=== PATIENT | male | born 1985 | race Hispanic/Latino ===

== ENCOUNTER 2020-11-05 16:11 | Emergency (ER) | payer OTHER ==
[2020-11-05 17:07] LABS: BUN Blood Urea Nitrogen 9 mg/dL (7-18); Bicarbonate 25 mmol/L (21-32); Glucose Level 92 mg/dL (74-106); Potassium 3.4 mmol/L (3.5-5.1); Sodium Level 139 mmol/L (136-145); Valproic Acid (Depakene) Level < 50.0 ug/mL (50-100)
[2020-11-05 17:15] LABS: Absolute Lymphocytes (CBC) 1.8 K/uL (0.7-4.9); Basophils % 0.5 % (0-1.3); Hematocrit 39.4 % (39.6-49.0); Lymphocytes % 15.3 % (15.3-44.8); MPV 10.6 fL (7.6-11.3); RBC Red Blood Cell Count 4.75 M/uL (4.33-5.43)
--- NOTE | 2020-11-05 18:08 | ER ---
Nurse's Notes [facility] Name: Byron Gutierrez Age: 35 yrs Sex: Male : 1985 Arrival Date: 11/05/2020 Time: 16:12 Bed 6 Private MD: Diagnosis: Epilepsy and recurrent seizures Presentation: 11/05 16:13 Chief complaint: EMS states: Probable seizure x 2 today. Pt reported he recalls feeling hb an aura and then lost time twice today. Hx of seizures, and dissociative identity disorder, has been out of his Seroquel x 2 weeks. 20g LAC. Coronavirus screen: At this time, the client does not indicate any symptoms associated with coronavirus-19. Ebola Screen: No symptoms or risks identified at this time. Initial Sepsis Screen: Does the patient meet any 2 criteria? No. Patient's initial sepsis screen is negative. Does the patient have a suspected source of infection? No. Patient's initial sepsis screen is negative. Risk Assessment: Do you want to hurt yourself or someone else? Patient reports no desire to harm self or others. Onset of symptoms was November 05, 2020. 16:13 Method Of Arrival: EMS: [facility] 16:13 Acuity: KYLEIGH 2 hb Triage Assessment: 16:17 General: Appears in no apparent distress. Behavior is calm, cooperative. Pain: Denies hb pain. EENT: No signs and/or symptoms were reported regarding the EENT system. Neuro: Level of Consciousness is awake, alert, obeys commands, Oriented to person, place, time, situation. Cardiovascular: Patient's skin is warm and dry. Respiratory: Respiratory effort is even, unlabored, Respiratory pattern is regular, symmetrical. GI: No signs and/or symptoms were reported involving the gastrointestinal system. : No signs and/or symptoms were reported regarding the genitourinary system. Derm: Skin is pink, warm \T\ dry. Musculoskeletal: No signs and/or symptoms reported regarding the musculoskeletal system. Historical: - Allergies: 16:17 No Known Allergies; hb - Home Meds: 16:17 Depakote Oral [Active]; Seroquel Oral [Active]; hb - PMHx: 16:17 Anxiety; Dissociative Identity Disorder; Seizures; hb - PSHx: 16:17 None; hb - Immunization history:: Adult Immunizations up to date. - Social history:: Smoking status: Patient denies any tobacco usage or history of. Screenin:14 Abuse screen: Denies threats or abuse. Nutritional screening: No deficits noted. tw2 Tuberculosis screening: No symptoms or risk factors identified. Fall Risk None identified. Assessment: 16:17 General: see triage assessment . hb 17:35 Reassessment: Patient appears in no apparent distress at this time. No changes from tw2 previously documented assessment. Patient and/or family updated on plan of care and expected duration. Pain level reassessed. Patient is alert, oriented x 3, equal unlabored respirations, skin warm/dry/pink. 18:29 Reassessment: Patient appears in no apparent distress at this time. Patient and/or hb family updated on plan of care and expected duration. Pain level reassessed. Patient is alert, oriented x 3, equal unlabored respirations, skin warm/dry/pink. Vital Signs: 16:13 BP 83 / 71; Pulse 88; Resp 16; Temp 97.8; Pulse Ox 9% on R/A; Pain 0/10; hb 16:49 BP 107 / 65; Pulse 84; Resp 16; Pulse Ox 99% on R/A; Pain 0/10; hb 17:35 BP 122 / 84; Pulse 59; Resp 17; Pulse Ox 95% on R/A; tw2 18:15 BP 126 / 86; Pulse 61; Resp 16; Pulse Ox 99% ; hb Tererro Coma Score: 16:17 Eye Response: spontaneous(4). Verbal Response: oriented(5). Motor Response: obeys hb commands(6). Total: 15. ED Course: 16:12 Patient arrived in ED. hb 16:13 Arm band placed on. hb 16:14 Bed in low position. Call light in reach. Side rails up X2. Seizure precautions tw2 initiated. classroom monitor on. Pulse ox on. NIBP on. 16:15 Alexandra Hdz FNP-C is PHCP. kb 16:15 Bill Tapia MD is Attending Physician. kb 16:15 Triage completed. hb 16:21 Pamella Anderson, RN is Primary Nurse. hb 16:32 Maintain EMS IV. Dressing intact. Good blood return noted. Site clean \T\ dry. Gauge \T\ hb site: 20g LAC. 18:29 No provider procedures requiring assistance completed. IV discontinued, intact, hb bleeding controlled, No redness/swelling at site. Administered Medications: 18:28 Drug: Depakote (divalproex) 500 mg Route: PO; hb 18:28 Follow up: Response: Medication administered at discharge. hb Outcome: 18:08 Discharge ordered by . yesenia 18:29 Discharged to home via wheelchair. hb 18:29 Condition: stable 18:29 Discharge instructions given to patient, Instructed on discharge instructions, follow up and referral plans. medication usage, Demonstrated understanding of instructions, follow-up care, medications, Prescriptions given X 1. 18:30 Patient left the ED. hb Signatures: Alexandra Hdz, ANNIKA-C MANAGEMENT DEVELOPER-Pamella Britton, RN RN Fozia Mckenna RN RN tw2
--- NOTE | 2020-11-05 18:09 | EDPHYS ---
Physician Documentation [facility] Name: Byron Gutierrez Age: 35 yrs Sex: Male : 1985 Arrival Date: 11/05/2020 Time: 16:12 Bed 6 Private MD: ED Physician Bill Tapia HPI: 11/05 16:59 This 35 yrs old Male presents to ER via EMS with complaints of Probable kb Seizure. 17:59 The patient presents with a history of multiple seizures, a total of 2. Character of kb seizure(s):. Character of seizure(s):. Character of seizure(s): "moved from kitchen to bedroom". Seizure onset: just prior to arrival. Context: the seizure(s) was witnessed, by no one, occurred at home, occurred while the patient was doing a teledoc therapy session. Contributing factors: missed recent doses of medications, sleep deprivation. Seizure Hx: Original onset: 2 year(s) ago, Cause: methamphetamine, Seizure medications: valproic acid. Associated injury: The patient did not suffer any apparent associated injury. Current symptoms: Currently, the patient is not experiencing any symptoms, the patient feels back to baseline, no decreased level of consciousness, no confusion, no dysphasia, no headache, no paralysis, no visual changes. The patient has experienced similar episodes in the past. The patient has not recently seen a physician. Pt reports he had 2 seizures at home and felt the aura like he was going to have another one so he called 911. States his aura is like an out of body experience. Today he felt that when he was on the phone doing a therapy session with his psych dr. States he was in the kitchen when it happened and woke up in his bed. It happened a second time and he woke up on a blow up mattress in his room. States he has been out of the seroquel he normally takes to help him sleep so he hasn't been getting much sleep lately. Also reports he missed his dose of depakote a few times. . Historical: - Allergies: 16:17 No Known Allergies; hb - Home Meds: 16:17 Depakote Oral [Active]; Seroquel Oral [Active]; hb - PMHx: 16:17 Anxiety; Dissociative Identity Disorder; Seizures; hb - PSHx: 16:17 None; hb - Immunization history:: Adult Immunizations up to date. - Social history:: Smoking status: Patient denies any tobacco usage or history of. ROS: 18:04 Constitutional: Negative for fever, chills, and weight loss, Cardiovascular: Negative kb for chest pain, palpitations, and edema, Respiratory: Negative for shortness of breath, cough, wheezing, and pleuritic chest pain, Abdomen/GI: Negative for abdominal pain, nausea, vomiting, diarrhea, and constipation, MS/Extremity: Negative for injury and deformity, Skin: Negative for injury, rash, and discoloration. 18:04 Neuro: Positive for seizure activity. Exam: 18:04 Constitutional: This is a well developed, well nourished patient who is awake, alert, kb and in no acute distress. Head/Face: Normocephalic, atraumatic. Eyes: Pupils equal round and reactive to light, extra-ocular motions intact. Lids and lashes normal. Conjunctiva and sclera are non-icteric and not injected. Cornea within normal limits. Periorbital areas with no swelling, redness, or edema. Cardiovascular: Regular rate and rhythm with a normal S1 and S2. No gallops, murmurs, or rubs. No pulse deficits. Respiratory: Respirations even and unlabored. No increased work of breathing, no retractions or nasal flaring. Abdomen/GI: Soft, non-tender. No distention Skin: Warm, dry with normal turgor. Normal color. MS/ Extremity: Pulses equal, no cyanosis. Neurovascular intact. Full, normal range of motion. Neuro: Awake and alert, GCS 15, oriented to person, place, time, and situation. Moves all extremities. Normal gait. Vital Signs: 16:13 BP 83 / 71; Pulse 88; Resp 16; Temp 97.8; Pulse Ox 9% on R/A; Pain 0/10; hb 16:49 BP 107 / 65; Pulse 84; Resp 16; Pulse Ox 99% on R/A; Pain 0/10; hb 17:35 BP 122 / 84; Pulse 59; Resp 17; Pulse Ox 95% on R/A; tw2 18:15 BP 126 / 86; Pulse 61; Resp 16; Pulse Ox 99% ; hb Glenn Coma Score: 16:17 Eye Response: spontaneous(4). Verbal Response: oriented(5). Motor Response: obeys hb commands(6). Total: 15. MDM: 16:15 Patient medically screened. kb 17:58 Data reviewed: vital signs, nurses notes. Data interpreted: Pulse oximetry: on room air kb is 95 %. Interpretation: normal. Counseling: I had a detailed discussion with the patient and/or guardian regarding: the historical points, exam findings, and any diagnostic results supporting the discharge/admit diagnosis, lab results, the need for outpatient follow up, a neurologist, to return to the emergency department if symptoms worsen or persist or if there are any questions or concerns that arise at home. 11/05 16:24 Order name: Depakote kb 11/05 16:24 Order name: CBC with Diff; Complete Time: 17:43 kb 11/05 16:24 Order name: Basic Metabolic Panel; Complete Time: 17:43 kb 11/05 16:24 Order name: IV Start; Complete Time: 16:48 kb 11/05 16:25 Order name: Valproic Acid (Depakene) Level; Complete Time: 17:43 EDMS Administered Medications: 18:28 Drug: Depakote (divalproex) 500 mg Route: PO; hb 18:28 Follow up: Response: Medication administered at discharge. hb Disposition: 11/06 08:20 Co-signature as Attending Physician, Bill Tapia MD. rn Disposition: 11/05/20 18:08 Discharged to Home. Impression: Epilepsy and recurrent seizures. - Condition is Stable. - Discharge Instructions: Seizure, Adult, [id number]. - Prescriptions for Seroquel 100 mg Oral tablet - take 1 tablet by ORAL route Every night; 5 tablet. - Medication Reconciliation Form, Thank You Letter, Antibiotic Education, Prescription Opioid Use form. - Follow up: Emergency Department; When: As needed; Reason: Worsening of condition. Follow up: Private Physician; When: 2 - 3 days; Reason: Recheck today's complaints, Continuance of care, Re-evaluation by your physician. Signatures: Dispatcher [employer] EDMS Alexandra Hdz, Bill Wagner MD MD rn Baxter, Heather, RN RN Corrections: (The following items were deleted from the chart) 11/05 18:30 18:08 11/05/2020 18:08 Discharged to Home. Impression: Epilepsy and recurrent seizures. hb Condition is Stable. Forms are Medication Reconciliation Form, Thank You Letter, Antibiotic Education, Prescription Opioid Use. Follow up: Emergency Department; When: As needed; Reason: Worsening of condition. Follow up: Private Physician; When: 2 - 3 days; Reason: Recheck today's complaints, Continuance of care, Re-evaluation by your physician. kb
[2020-11-05] MEDS ORDERED: DIVALPROEX DR 250 MG TAB PO ONE (18:38)
== END 2020-11-05 18:30 | disposition home or self-care (01) ==
LOC: ER 16:11
DX: G40.909 Epilepsy, unspecified, not intractable, without status epilepticus (principal); F41.9 Anxiety disorder, unspecified; F44.81 Dissociative identity disorder
CPT/HCPCS: 36415; 80048; 80164; 85025; 99284

== ENCOUNTER 2020-11-10 14:46 | Emergency (ER) | payer OTHER ==
--- OUTSIDE RECORDS SUMMARY | 2020-11-10 14:49 | XMS REPORT | Continuity of Care Document ---
:1985 Author Organization [facility] t Address [address] [place] [address] Care Team Providers Name Role Phone Lona MARVIN Attending Clinician Timothy Murphy DO Attending Clinician Alexandre Attending Clinician [phone] Payers Payer Name Policy Type Policy Number Effective Date Expiration Date S ource Problems This patient has no known problems. Allergies, Adverse Reactions, Alerts Allergy Allergy Status Severity Reaction(s) Onset Inactive Treating Comm ents Source Name Type Date Date Clinician No Known DA Active U 2017-08 [facility] 2-08 [place] s 00:00: d 00 [facility] No Known DA Active U [facility] 02-10 Clear s 00:00: Rajput 00 [facility] Medications This patient has no known medications. Procedures This patient has no known procedures. Encounters Start End Encounter Admission Attending Care Care Encounter Source Date/Time Date/Time Type Type Clinicians Facility Department ID 2020-11-07 2020-11-07 Refill Lona [facility] [id number] [facility] [id number] Clear [id number] Rajput [id number] [facility] Office Building 2020-10-23 2020-10-23 Patient Jeffrey [facility] [id number] 00:00:00 00:00:00 Outreach [facility] [id number] [facility] [id number] [place] [id number] 2020-09-21 2020-09-21 Telephone Lona [facility] [id number] 00:00:00 00:00:00 [facility] Zzish [id number] Clear [id number] [place] [id number] [place] [address] Office Building 2020-05-01 2020-05-01 Office , [facility] [id number] 13:05:20 13:56:24 Visit App Annie [id number] [facility] [id number] Critical access hospital 2020-05-01 2020-05-01 Telephone [facility] [id number] 00:00:00 00:00:00 [facility] [id number] CLINICS [id number] Critical access hospital 2018-09-21 2018-09-21 Outpatient SHELLEY Schroeder [id number] 15:40:00 15:40:00 [place] [id number] Results Test Description Test Time Test Comments Results Result Comments Source BASIC METABOLIC PANEL 2019-12-13 06:02:00 Test Item Value Reference Range Interpretation Comme nts SODIUM (test code = NA) 144 mmol/l 134.0-147.0 N POTASSIUM (test code = K) 3.8 mmol/L 3.6-5.2 N CHLORIDE (test code = CL) 110 mmol/l 98.0-107.0 H CARBON DIOXIDE (test code = CO2) 24.5 mmol/l 21.0-33.0 N ANION GAP (test code = GAP) 13.3 0-20 N GLUCOSE (test code = GLU) 106 mg/dl 70.0-110.0 N BLOOD UREA NITROGEN (test code = BUN) 11 mg/dl 7.0-18.0 N CREATININE (test code = CREAT) 0.87 mg/dL 0.60-1.30 N GFR NON BLACK (test code = GFRNONBLACK) 108 mL/min 105-110 N GFR BLACK (test code = GFRBLACK) 131 mL/min 127-133 N CALCIUM (test code = CA) 8.3 mg/dl 8.0-10.5 N CBC W/AUTO [id number] 05:30:00 Test Item Value Reference Range Interpretation Comments WHITE BLOOD CELL (test code = 6.1 K/mm3 4.5-11.0 N WBC) RED BLOOD CELL (test code = 4.67 M/mm3 4.40-5.90 N RBC) HEMOGLOBIN (test code = HGB) 13.6 gm/dL 13.0-17.0 N HEMATOCRIT (test code = HCT) 42.3 % 36.0-48.0 N MEAN CELL VOLUME (test code = 90.6 UM3 80.0-94.0 N MCV) MEAN CELL HGB (test code = MCH) 29.1 UUG 25.5-32.5 N MEAN CELL HGB CONCETRATION 32.2 gm/dL 29.0-35.5 N (test code = MCHC) RED CELL DISTRIBUTION WIDTH 14.4 % 11.5-15.0 N (test code = RDW) RED CELL DISTRIBUTION WIDTH SD 48.1 fL 34.8-50.2 N (test code = RDW-SD) PLATELET COUNT (test code = 146 K/mm3 150-400 L PLT) MEAN PLATELET VOLUME (test code 11.6 fl 7.4-10.4 H = MPV) NEUTROPHIL % (test code = NT%) 63.3 % 49.0-76.0 N IMMATURE GRANULOCYTE % (test 0.8 % 0.0-0.4 H code = IG%) LYMPHOCYTE % (test code = LY%) 23.9 % 23.0-38.0 N MONOCYTE % (test code = MO%) 8.5 % 1.0-10.0 N EOSINOPHIL % (test code = EO%) 2.8 % 1.0-5.0 N BASOPHIL % (test code = BA%) 0.7 % 0.0-1.0 N NEUTROPHIL # (test code = NT#) 3.9 K/mm3 2.4-6.3 N IMMATURE GRANULOCYTE # (test 0.05 x10 3/uL 0.00-0.07 N code = IG#) LYMPHOCYTE # (test code = LY#) 1.5 K/mm3 1.2-4.0 N MONOCYTE # (test code = MO#) 0.5 K/mm3 0.0-0.6 N EOSINOPHIL # (test code = EO#) 0.2 K/MM3 0.0-0.7 N BASOPHIL # (test code = BA#) 0.0 K/mm3 0.0-0.2 N DRUGS OF ABUSE SCREEN [id number] 09:39:00 Test Item Value Reference Interpretation Comments Range URN COCAINE (test NEGATIVE NEGATIVE Cocaine cu t-off code = COCAURN) concentratio n: 300 ng/mL URN CANNABINOIDS POSITIVE NEGATIVE A UNCONFIRMED INITIAL (test code = SCREENING ONLY; SUGGEST CANNABURN) ADDITIONALCONFI RMATORY TESTING.Cannabi noids cut-off concent ration: 50 ng/mL URN AMPHETAMINE NEGATIVE NEGATIVE Amphetamine cut-off (test code = concentration: 1000 ng/mL AMPHETURN) URN BARBITURATE NEGATIVE NEGATIVE Barbiturate cut-off (test code = concentration: 200 ng/mL BARBITURN) URN BENZODIAZEPINE NEGATIVE NEGATIVE Benzodiaz epine cut-off (test code = concentration: 200 ng/mL BENZOURN) URN OPIATES (test NEGATIVE NEGATIVE Opiates cu t-off code = OPIATURN) concentrati on: 200 ng/mL URN PHENCYCLIDINE NEGATIVE NEGATIVE Phencyclid ine(PCP) cut-off (PCP) (test code = concentra tion: 25 ng/ml PHENCURN) URN METHADONE (test NEGATIVE NEGATIVE Methadon e cut-off code = METHAURN) concentrati on: 300 ng/mL Specimen comments: Clean CatchURINALYSIS [id number] 09:37:00 Test Item Value Reference Range Interpretation Comments UA COLOR (test code = YELLOW COLU) UA APPEARANCE (test code CLEAR = APPU) UA GLUCOSE DIPSTICK (test NORMAL mg/dl NORMAL code = DGLUU) UA BILIRUBIN DIPSTICK NEGATIVE mg/dL NEGATIVE (test code = BILU) UA KETONE DIPSTICK (test 5 mg/dl mg/dl NEGATIVE A code = KETU) UA SPECIFIC GRAVITY (test 1.025 1.000-1.030 code = SGU) UA BLOOD DIPSTICK (test 10 Finesse/micL Finesse/micL NEGATIVE A code = MAICOL) UA PH DIPSTICK (test code 6.0 5.0-9.0 = HELIO) UA PROTEIN DIPSTICK (test 30 mg/dl NEGATIVE code = PROU) UA UROBILINIOGEN DIPSTICK NORMAL mg/dl NORMAL (test code = URO) UA NITRITE DIPSTICK (test NEGATIVE NEGATIVE code = CLAUDIA) UA LEUKOCYTE ESTERASE NEGATIVE Megan/micL NEGATIVE DIPSTICK (test code = LEUU) UA WBC (test code = WBCU) 0-2 WBC/HPF NONE UA RBC (test code = RBCU) 0-2 RBC/HPF 0-3 UA EPITHELIAL CELLS (test 0-3 EPI/HPF 0-3 code = EPIU) UA BACTERIA (test code = FEW NONE BACU) Specimen comments: Clean CatchURINALYSIS [id number] 09:35:00 Test Item Value Reference Range Interpretation Comments UA COLOR (test code = YELLOW COLU) UA APPEARANCE (test code CLEAR = APPU) UA GLUCOSE DIPSTICK (test NORMAL mg/dl NORMAL code = DGLUU) UA BILIRUBIN DIPSTICK NEGATIVE mg/dL NEGATIVE (test code = BILU) UA KETONE DIPSTICK (test 5 mg/dl mg/dl NEGATIVE A code = KETU) UA SPECIFIC GRAVITY (test 1.025 1.000-1.030 code = SGU) UA BLOOD DIPSTICK (test 10 Finesse/micL Finesse/micL NEGATIVE A code = MAICOL) UA PH DIPSTICK (test code 6.0 5.0-9.0 = HELIO) UA PROTEIN DIPSTICK (test 30 mg/dl NEGATIVE code = PROU) UA UROBILINIOGEN DIPSTICK NORMAL mg/dl NORMAL (test code = URO) UA NITRITE DIPSTICK (test NEGATIVE NEGATIVE code = CLAUDIA) UA LEUKOCYTE ESTERASE NEGATIVE Megan/micL NEGATIVE DIPSTICK (test code = LEUU) UA WBC (test code = WBCU) WBC/HPF NONE UA RBC (test code = RBCU) RBC/HPF 0-3 UA EPITHELIAL CELLS (test EPI/HPF 0-3 code = EPIU) UA BACTERIA (test code = NONE BACU) Specimen comments: Clean Catch- XR CHEST 1 [id number] 09:35:00 FAX: Peter Noriega MD [phone] [place]: St: REG Name: NISA CARVALHO [facility] : 1985 Age/S: 33/M [address] [facility] Unit#: [id number] Loc: [place], [place]: [place] [id number] Acct: [id number] Dis Date: Status: REG ER PHONE #: [phone] Exam Date: 09/20/2018 09 FAX #: [phone] Reason: Seizure EXAMS: CPT CODE: [id number] XR CHEST 1 V 72885 Chest Radiograph History: Seizure Comparison: July 11, 2018 Location: R16 A single frontal view of the chest is submitted. The heart appears unchanged in size. Pulmonary vasculature is unremarkable. The visualized lung lazaro appear to be free of disease. The bones appear unchanged. IMPRESSION: There is no radiographic evidence of acute cardiopulmonary disease. at 0045 Reported and signed by: Cristóbal Hudson M.D. CC: Peter Noriega MD Technologist: ARUNA OLIVARES Trnkyrd Date/Time/By: 09/20/2018 (0808) : By: [facility] PAGE 1 Signed Report FAX: Peter Noriega MD [phone] [place]: St: REG Name: NISA CARVALHO [facility] : 1985 Age/S: 33/M [address] [facility] Unit #: [id number] Loc: [place], [place]: [place] [id number] Acct: [id number] Dis Date: Status: REG ER PHONE #: [phone] Exam Date: 09/20/2018935 FAX #: [phone] Reason: Seizure EXAMS: CPT CODE: [id number] XR CHEST 1 V 67541 <Continued> Orig Print D/T: S: 09/20/2018 (0939) PAGE 2 Signed Report CBC W/O [id number] 09:32:00 Test Item Value Reference Range Interpretation Comments WHITE BLOOD CELL (test code = WBC) 11.2 K/mm3 4.5-11.0 H RED BLOOD CELL (test code = RBC) 5.44 M/mm3 4.40-5.90 N HEMOGLOBIN (test code = HGB) 15.1 gm/dL 13.0-17.0 N HEMATOCRIT (test code = HCT) 47.0 % 36.0-48.0 N MEAN CELL VOLUME (test code = MCV) 86.4 UM3 80.0-94.0 N MEAN CELL HGB (test code = MCH) 27.8 UUG 25.5-32.5 N MEAN CELL HGB CONCETRATION (test 32.1 gm/dL 29.0-35.5 N code = MCHC) RED CELL DISTRIBUTION WIDTH (test 13.4 % 11.5-15.0 N code = RDW) PLATELET COUNT (test code = PLT) 188 K/mm3 150-400 N MEAN PLATELET VOLUME (test code = 11.6 fl 7.4-10.4 H MPV) - XR ABDOMEN AP 1V (KUB)2015-10-11 16:41:00 FAX: Anna Coley [phone] [place]: St: [facility] Name: NISA CARVALHO [facility] : 1985 Age/S: 30/M [address] [place] [address] Unit#: [id number] Loc: [place] [address] Phys: Anna Jamil Acct: [id number] Dis Date: Status: UNK PHONE #: [phone] Exam Date: 10/11/2015 163 FAX #: [phone] Reason: epigastric pain EXAMS: CPT CODE: [id number] XR ABDOMEN AP 1V ([facility]) 17485 PROCEDURE: ABDOMEN SINGLE VIEW INDICATION: Epigastric pain. Left upper quadrant pain for one month. COMPARISON: None. FINDINGS: Supine views of the abdomen and pelvis were obtained. The bowel gas pattern is normal. Gas and scattered fecal material throughout a normal caliber colon. No gross free intraperitoneal air. No gross soft tissue masses or pathologic calcifications. The skeleton is intact. IMPRESSION: Negative. SL: 01 at 1641 Reported and signed by: Wilfredo Sepulveda M.D. CC: Anna SCHWARTZ Technologist: Omar Gonzalez RT(R) Trnscrd Date/Time/By: 10/11/2015 (267) : By: Shane Orig Print D/T: S: 10/11/2015 (2980) PAGE 1 Signed Report
[2020-11-10 15:33] LABS: Urine Blood Negative (Negative); Urine Glucose Negative (Negative); Urine Protein 1+ (Negative); Urine Specific Gravity >=1.030 (1.005-1.030)
[2020-11-10 15:53] LABS: Absolute Lymphocytes (CBC) 2.9 K/uL (0.7-4.9); Hematocrit 42.9 % (39.6-49.0); Lymphocytes % 33.5 % (15.3-44.8); MPV 9.7 fL (7.6-11.3)
[2020-11-10 15:59] LABS: Protime INR 1.21
[2020-11-10] MEDS ORDERED: LORazepam 2 MG/ML VIAL ONE ×4 (16:00→23:55)
[2020-11-10] MEDS ORDERED: NA CHLORIDE 0.9% 1,000 ML ONE (16:00)
[2020-11-10 16:10] LABS: ALT/SGPT 22 U/L (12-78); AST/SGOT 34 U/L (15-37); Albumin 4.1 g/dL (3.4-5.0); Alkaline Phosphatase 65 U/L (45-117); BUN Blood Urea Nitrogen 12 mg/dL (7-18); Bicarbonate 27 mmol/L (21-32); Bilirubin Direct 0.2 mg/dL (0-0.2); Bilirubin Total 0.8 mg/dL (0.2-1.0); Glucose Level 107 mg/dL (74-106); Potassium 3.2 mmol/L (3.5-5.1); Protein, Total 8.7 g/dL (6.4-8.2); Sodium Level 142 mmol/L (136-145)
--- NOTE | 2020-11-10 16:42 | RAD REPORT ---
EXAM DESCRIPTION: CT - Head Brain Wo Cont - 11/10/2020 4:24 pm CLINICAL HISTORY: MENTAL STATUS CHANGEI am going to history of seizures COMPARISON: None TECHNIQUE: Axial 5 mm thick images of the head were obtained without IV contrast. All CT scans are performed using dose optimization technique as appropriate and may include automated exposure control or mA/KV adjustment according to patient size. FINDINGS: No intracranial hemorrhage, mass, edema or shift of mid-line structures. No acute infarcti on changes seen. No abnormal extra-axial fluid collections. Ventricles are normal. Mastoid air cells and visualized portions of the paranasal sinuses are clear. No acute bony findings. Minimal soft tissue in the left parietal scalp soft tissues probably small hematoma. IMPRESSION: Negative non-contrast CT head examination for acute or significant finding.
[2020-11-10] MEDS ORDERED: WATER FOR INJ,STERILE 10 ML ONE (17:32)
[2020-11-10] MEDS ORDERED: ZIPRASIDONE MESYLA 20 MG/VIAL IM ONE (17:32)
[2020-11-10] MEDS ORDERED: DIPHENHYDRAMINE 50 MG/ML VIAL ONE (17:32)
[2020-11-10 19:03] LABS: Barbiturates NEGATIVE (NEGATIVE); Benzodiazepines NEGATIVE (NEGATIVE); Cocaine NEGATIVE (NEGATIVE); METHAMPHETAM NEGATIVE (NEGATIVE); Methadone NEGATIVE (NEGATIVE); Opiates NEGATIVE (NEGATIVE); Phencyclidine NEGATIVE (NEGATIVE); THC Cannibis POSITIVE (NEGATIVE)
[2020-11-10] MEDS ORDERED: POTASSIUM 25 MEQ EFFERV TAB ONE (19:36)
--- NOTE | 2020-11-10 21:08 | ER ---
Nurse's Notes [facility] Name: Byron Gutierrez Age: 35 yrs Sex: Male : 1985 Arrival Date: 11/10/2020 Time: 14:48 Bed 20 Private MD: Diagnosis: Suicidal ideations Presentation: 11/10 14:59 Chief complaint: Mother reports confusion today, hx of seizures. Pt stated "I don't hb feel right, like after I have a seizure." Wandering around the lobby, requires frequent reorienting. Coronavirus screen: At this time, the client does not indicate any symptoms associated with coronavirus-19. Ebola Screen: No symptoms or risks identified at this time. Onset of symptoms was November 10, 2020. 14:59 Method Of Arrival: Ambulatory hb 15:01 Acuity: KYLEIGH 2 hb 19:30 Initial Sepsis Screen: Does the patient meet any 2 criteria? No. Patient's initial sf sepsis screen is negative. Does the patient have a suspected source of infection? No. Patient's initial sepsis screen is negative. Risk Assessment: Do you want to hurt yourself or someone else? Patient reports desire/thoughts of hurting themselves or someone else. Provider notified. Triage Assessment: 19:30 General: Appears in no apparent distress. comfortable, Behavior is calm, cooperative. sf Historical: - Allergies: 15:53 No Known Allergies; bw - Home Meds: 15:53 Depakote Oral [Active]; Seroquel Oral [Active]; bw - PMHx: 15:53 Anxiety; Dissociative Identity Disorder; Seizures; bw - Immunization history:: Adult Immunizations up to date. - Social history:: Smoking status: Patient reports the use of cigarette tobacco products. Screenin:53 Abuse screen: Denies threats or abuse. Nutritional screening: No deficits noted. bw Tuberculosis screening: No symptoms or risk factors identified. Fall Risk None identified. Assessment: 15:05 Reassessment: Pt asked for a urine sample. Pt went to bathroom used urine cup. When I bw went to grab urine cup from patient he dropped in floor and said I don't know what I'm doing. 15:20 Reassessment: Overheard pt mother saying to tell them you're suicidal so we can get you bw the help you need it. When pt asked if suicidal pt states yes he is and yes he has a plan. Reported to Jean Pierre SCHWARTZ and Pamella Kincaid RN and fish housekeeper. 15:21 Pain: Complains of pain in abdomen. Neuro: Reports pt mother reports pt being bw disoriented. Cardiovascular: No deficits noted. Respiratory: No deficits noted. GI: Reports lower abdominal pain, upper abdominal pain, nausea. : Reports burning with urination, cramping. 15:51 Reassessment:. Reassessment: Patient appears in no apparent distress at this time. bw Patient and/or family updated on plan of care and expected duration. Pain level reassessed. Patient is alert, oriented x 3, equal unlabored respirations, skin warm/dry/pink. 16:51 Reassessment: No changes from previously documented assessment. bw 17:15 Reassessment: Pt asked for a urine sample by MD. When pt told again that he would have bw to be catherized for a urine sample, pt pulled out IV and said "Fuck outta my face, get out of here, I'm leaving." Reported to MD and charge. Holland puri called. Security, charge nurse, , this RN, and ed techs to bedside. Pt medicated per orders. Pt mother escorted to lobby. 18:20 Reassessment: Pt standing at doorway of room. No needs or concerns voiced at this time. bw 19:00 Reassessment: MOTHER: Carey Montesinos [phone]. 19:23 Reassessment: spoke to pt who is unable to hold a rational conversation and is speaking bb in a flight of ideas. Discussed with the provider need for emergency fpc order for pt and staff safety. Desk tech notified mental health deputy. 19:30 General: Appears obese, unkempt, Behavior is calm, cooperative. Pain: Denies pain. bw Neuro: Level of Consciousness is awake, alert, Oriented to person, place, time, situation. Cardiovascular: No deficits noted. Patient's skin is warm and dry. Respiratory: No deficits noted. Airway is patent Respiratory effort is even, unlabored, Respiratory pattern is regular, symmetrical. GI: No signs and/or symptoms were reported involving the gastrointestinal system. : No signs and/or symptoms were reported regarding the genitourinary system. EENT: Poor dentition noted. 20:12 Reassessment: Using iPad for psych assessment. sf 20:30 Reassessment: Patient appears in no apparent distress at this time. No changes from sf previously documented assessment. Patient and/or family updated on plan of care and expected duration. Pain level reassessed. Patient is alert, oriented x 3, equal unlabored respirations, skin warm/dry/pink. See paper front desk attendant observation form for patients at risk of harm to self or others. 22:10 Reassessment: Patient appears in no apparent distress at this time. No changes from sf previously documented assessment. Patient and/or family updated on plan of care and expected duration. Pain level reassessed. Patient is alert, oriented x 3, equal unlabored respirations, skin warm/dry/pink. 23:12 Reassessment: Patient appears in no apparent distress at this time. No changes from sf previously documented assessment. Patient and/or family updated on plan of care and expected duration. Pain level reassessed. Patient is alert, oriented x 3, equal unlabored respirations, skin warm/dry/pink. Ambulatory to restroom. 23:33 Reassessment: Patient out of room asking for his mother and wanting to leave, sf reoriented and put back in room, patient not wanting to stay in room, code quesada called. 11/11 01:52 Reassessment: pt very anxious, pacing in room states he can't sleep Oh Page LANA cade notified, new orders received pt medicated see OCT. 02:33 Reassessment: pt becoming agitated states he wants to go home trying to leave his room alyssia Oquendo notified, security at bedside, new orders received pt medicated, see MAR. 02:51 Reassessment: Patient fighting with staff and security, yelling and cussing trying to sf leave room stating "I'm going to go to my mom." Patient refusing to stay in room. Stating, "I just want to be left alone". 03:00 Reassessment: Patient calm and sitting in room with security outside door. sf 03:45 Reassessment: Patient appears in no apparent distress at this time. Patient and/or sf family updated on plan of care and expected duration. Pain level reassessed. Patient resting in stretcher, lights dim, requested TV off, warm blankets given. Trying to sleep. 04:42 Reassessment: Patient appears in no apparent distress at this time. patient sleeping. sf 05:36 Reassessment: Patient appears in no apparent distress at this time. Patient sleeping. sf 07:55 Reassessment: pt sleeping at this time. customer support technician to bedside for lab draw. Pt upset about bw being woken up but cooperative. Will continue to monitor. 10:49 Reassessment: report given to EMS. Pt mother called per pt request. bw Vital Signs: 11/10 14:59 BP 178 / 102; Pulse 91; Resp 20; Temp 97.2; Pulse Ox 100% ; hb 15:53 BP 160 / 98; Pulse 94; Resp 18; Pulse Ox 100% ; bw 20:44 BP 140 / 82 RA (auto/lg); Pulse 81; Resp 18; Temp 98.3(O); Pulse Ox 98% ; jp3 11/11 04:08 Weight 145.15 kg; mw2 06:30 BP 130 / 75; Pulse 72; Resp 16; Pulse Ox 98% ; sf Glenn Coma Score: 11/10 19:30 Eye Response: spontaneous(4). Verbal Response: oriented(5). Motor Response: obeys sf commands(6). Total: 15. ED Course: 14:48 Patient arrived in ED. ds1 15:01 Triage completed. hb 15:04 Oh Franco PA is PHCP. cp 15:04 Bill Tapia MD is Attending Physician. cp 15:04 Farrah Wilson, PAM is Primary Nurse. sv 15:21 Jacinta Bush, PAM is Primary Nurse. bw 15:53 Patient has correct armband on for positive identification. Bed in low position. Call bw light in reach. Side rails up X 1. Pulse ox on. NIBP on. 15:53 No provider procedures requiring assistance completed. Inserted saline lock: 20 gauge bw in left upper arm, using aseptic technique. Blood collected. 16:13 Depakote Sent. bw 16:13 Acetaminophen Sent. bw 16:24 CT Head Brain wo Cont In Process Unspecified. EDMS 18:45 Legal drug screen obtained per protocol. jp3 19:16 Primary Nurse role handed off by Jacinta Bush, PAM mw2 19:24 called [facility] line to have a screener speak with the patient. mw2 19:27 Jacinta Bush, RN is Primary Nurse. bw 19:30 No apparent distress. Resting quietly. transfer approval from receiving facility. sf Safety Checks: Personal items have been removed. The door is open or patient has been placed in a hallway bed/chair. Sitter present at this time. 19:30 Patient has correct armband on for positive identification. Bed in low position. Call bw light in reach. Side rails up X 1. Seizure precautions initiated. One-on-one care X 15 minutes. 19:30 Arm band placed on. sf 19:54 Primary Nurse role handed off by Jacinta Bush, RN sf 19:54 Drew Koenig, RN is Primary Nurse. sf 20:11 patient talking to Paty from [facility]. mw2 21:13 faxed patient clinicals to [facility] [place]. mw2 21:56 Nurse to Nurse from [facility]. mw2 21:59 Report given to Janae Pickett at [facility] [place]. sf 22:18 faxed patient clinicals to all available psych facilities. mw2 23:12 transfer approval from receiving facility. sf 23:12 No apparent distress. Resting quietly. sf 23:23 [facility] reports no beds available until Thursday. sf 23:42 [facility] notified called [facility] to have the [facility] write an ELOY on the patient. 11/11 02:57 Police notified at 03:00. mw2 04:04 [facility] called to let us know they need an exclusionary form filled out and faxed over. mw2 04:15 faxed exclusionary, and patient clinicals to [facility]. mw2 06:14 Report given to To Patricia Melton, PAM. sf 06:14 connected Patricia Oquendo from [facility] with Drew Oquendo for nurse to nurse. mw2 06:40 Dr. Oquendo called and left a message on Dr. Mejía's cell phone for patient transfer mw2 consultation. 06:[address] Varner the psychiatrist health information systems technician for [facility] with Dr. Khan for [facility] patient transfer consultation. 07:06 connected Leon from [facility] with Drew Manley for patient transfer eb consultation. 07:06 Report given to to PAM Quintero at [facility]. sf 07:12 Report given to PAM Workman. sf 07:[address] Thurston the psychiatrist health information systems technician for [facility] with Dr. Regina salinas for patient transfer consultation. 08:51 administrative approval given by Kandis Weber/ patient has been accepted to [facility]/ Dr. Thurston has accepted the patient in transfer. 10:49 IV discontinued. bw Administered Medications: 11/10 15:50 Drug: NS 0.9% 1000 ml Route: IV; Rate: 1 bolus; Site: Other; bw 15:50 Drug: Ativan 1 mg Route: IVP; Site: Other; bw 16:13 Follow up: Response: No adverse reaction bw 17:22 Drug: Ativan 1 mg Route: IM; Site: right deltoid; hb 18:34 Follow up: Response: No adverse reaction; Anxiety unchanged bw 17:28 Drug: Geodon 10 mg Route: IM; Site: right deltoid; bw 18:34 Follow up: Response: No adverse reaction; Anxiety unchanged bw 17:28 Drug: Benadryl (diphenhydrAMINE) 25 mg Route: IM; Site: left deltoid; bw 18:34 Follow up: Response: No adverse reaction; Anxiety unchanged bw 18:33 Drug: Ativan 2 mg Route: IM; Site: left deltoid; bw 19:27 Follow up: Response: No adverse reaction bw 19:28 Drug: Potassium Effervescent Tablet 50 mEq Route: PO; bw 22:11 Follow up: Response: No adverse reaction sf 23:41 Drug: Ativan 2 mg Route: IM; Site: right deltoid; sf 11/11 03:49 Follow up: Response: No adverse reaction sf 11/10 23:42 CANCELLED (Duplicate Order): Ativan 2 mg IM once sf 11/11 01:54 Drug: Geodon 20 mg Route: IM; Site: right deltoid; bb 03:49 Follow up: Response: No adverse reaction sf 01:54 Drug: Benadryl (diphenhydrAMINE) 25 mg Route: IM; Site: right deltoid; bb 03:49 Follow up: Response: No adverse reaction sf 02:35 Drug: Ativan 2 mg Route: IM; Site: left deltoid; bb 03:49 Follow up: Response: No adverse reaction sf Outcome: 11/10 21:08 ER care complete, transfer ordered by MD. cruz 11/11 10:49 Transferred by ground EMS to other acute care facility: [facility] . Transfer form bw completed. Condition: stable Discharge instructions given to EMS. 10:50 Patient left the ED. bw Signatures: Dispatcher [employer] Farrah Nicholas RN RN sv Aracelis Rodarte ds1 Alix Tompkins RN RN bb Page, Corey, PA PA cp Baxter, Heather, RN RN Frederic Ashton mw2 Anna Feldman Jacob jp3 Drew Koenig RN RN sf Jacinta Bush RN RN bw Corrections: (The following items were deleted from the chart) 11/10 15:51 15:51 Reassessment: Patient appears in no apparent distress at this time. Patient bw and/or family updated on plan of care and expected duration. Pain level reassessed. Patient is alert, oriented x 3, equal unlabored respirations, skin warm/dry/pink. Patient is alert/active/playful, equal unlabored respirations, skin warm/dry/pink. bw 18:17 16:51 Reassessment: Pt bw bw 18:24 17:15 Reassessment: Pt standing at doorway of room. No needs or concerns voiced at this bw time. bw 22:12 22:12 Response: No adverse reaction sf 23:47 23:42 Police called [facility] to have the [facility] write an ELOY mw2 for the patient mw2 11/11 05:37 03:45 Reassessment: Patient appears in no apparent distress at this time. Patient sf and/or family updated on plan of care and expected duration. Pain level reassessed. Patient resting in stretcher, lights dim, requested TV off, warm blankets given sf 07:12 07:11 Report given to to PAM Quintero at [facility] sf sf
--- NOTE | 2020-11-10 21:08 | EDPHYS ---
Physician Documentation [facility] Name: Byron Gutierrez Age: 35 yrs Sex: Male : 1985 Arrival Date: 11/10/2020 Time: 14:48 Bed 20 Private MD: ED Physician Bill Tapia HPI: 11/10 15:15 This 35 yrs old Male presents to ER via Ambulatory with complaints of Altered cp Mental Status. 15:15 The patient presents with confusion. cp 15:15 Onset: The symptoms/episode began/occurred at an unknown time. 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 Associated signs and symptoms: Pertinent negatives: abdominal pain, chest pain. Current symptoms: In the emergency department the patient's symptoms are unchanged from the initial presentation, despite home interventions. Historical: - Allergies: 15:53 No Known Allergies; bw - Home Meds: 15:53 Depakote Oral [Active]; Seroquel Oral [Active]; bw - PMHx: 15:53 Anxiety; Dissociative Identity Disorder; Seizures; bw - Immunization history:: Adult Immunizations up to date. - Social history:: Smoking status: Patient reports the use of cigarette tobacco products. ROS: 15:20 Constitutional: Negative for fever. cp 15:20 Cardiovascular: Negative for chest pain. cp 15:20 Respiratory: Negative for cough, shortness of breath, wheezing. 15:20 Abdomen/GI: Negative for abdominal pain, nausea, vomiting, and diarrhea. 15:20 Neuro: Positive for dizziness, Negative for headache. 15:20 Psych: Positive for suicidal ideation, Negative for auditory hallucinations, visual hallucinations. 15:20 All other systems are negative. Exam: 15:25 Constitutional: The patient appears in no acute distress, alert, awake, cp non-diaphoretic, non-toxic, well developed, well nourished, unkempt. 15:25 Head/Face: Normocephalic, atraumatic. cp 15:25 Eyes: Periorbital structures: appear normal, Pupils: equal, round, and reactive to light and accomodation, Extraocular movements: intact throughout, Conjunctiva: normal, no exudate, no injection, Sclera: no appreciated abnormality, Lids and lashes: appear normal, bilaterally. 15:25 ENT: External ear(s): are unremarkable, Nose: is normal, Mouth: Lips: moist, Oral mucosa: moist, Posterior pharynx: Airway: no evidence of obstruction, patent. 15:25 Neck: ROM/movement: is normal, is supple, no meningismus, no nuchal rigidity. 15:25 Chest/axilla: Inspection: normal, Palpation: is normal, no crepitus, no tenderness. 15:25 Cardiovascular: Rate: normal, Rhythm: regular, Edema: is not appreciated, JVD: is not appreciated. 15:25 Respiratory: the patient does not display signs of respiratory distress, Respirations: normal, no use of accessory muscles, no retractions, labored breathing, is not present, Breath sounds: are clear throughout, no decreased breath sounds, no stridor, no wheezing. 15:25 Abdomen/GI: Exam negative for discomfort, distension, guarding, Inspection: abdomen appears normal. 15:25 Neuro: Orientation: to person, situation, Mentation: able to follow commands, Motor: moves all fours, strength is normal. 15:25 Psych: Behavior/mood is cooperative, Patient having thoughts of suicide. Judgement / Insight is impaired. Delusions/hallucinations are not present. 16:00 ECG was reviewed by the Attending Physician. cp Vital Signs: 14:59 BP 178 / 102; Pulse 91; Resp 20; Temp 97.2; Pulse Ox 100% ; hb 15:53 BP 160 / 98; Pulse 94; Resp 18; Pulse Ox 100% ; bw 20:44 BP 140 / 82 RA (auto/lg); Pulse 81; Resp 18; Temp 98.3(O); Pulse Ox 98% ; jp3 11/11 04:08 Weight 145.15 kg; mw2 06:30 BP 130 / 75; Pulse 72; Resp 16; Pulse Ox 98% ; sf Glenn Coma Score: 11/10 19:30 Eye Response: spontaneous(4). Verbal Response: oriented(5). Motor Response: obeys sf commands(6). Total: 15. MDM: 15:14 Patient medically screened. cp 16:00 Differential Diagnosis: electrolyte abnormality, seizure, volume depletion, acute cp psychosis, illegal drug use. 17:20 Data reviewed: vital signs, nurses notes, lab test result(s), EKG, radiologic studies, cp CT scan. 17:20 Test interpretation: by ED physician or midlevel provider: ECG. cp 11/10 15:15 Order name: Acetaminophen cp 11/10 15:15 Order name: Basic Metabolic Panel; Complete Time: 16:35 cp 11/10 16:50 Interpretation: Normal except: K 3.2; GLUC 107; CA 9.5. cp 11/10 15:15 Order name: CBC with Diff; Complete Time: 16:00 cp 11/10 16:35 Interpretation: Normal except: WBC 8.60; PLT 236. cp 11/10 15:15 Order name: ETOH Level; Complete Time: 16:35 cp 11/10 17:11 Interpretation: Within normal limits: ETOH < 10. cp 11/10 15:15 Order name: Hepatic Function; Complete Time: 16:35 cp 11/10 16:35 Interpretation: Normal except: TP 8.7; GLOB 4.6; A/G 0.9. cp 11/10 15:15 Order name: PT-INR; Complete Time: 16:35 cp 11/10 15:15 Order name: Ptt, Activated; Complete Time: 16:35 cp 11/10 15:15 Order name: Salicylate; Complete Time: 16:35 cp 11/10 15:15 Order name: Urine Drug Screen; Complete Time: 19:06 cp 11/10 15:16 Order name: Acetaminophen Level; Complete Time: 16:35 EDMS 11/10 15:33 Order name: Urine Dipstick-Ancillary; Complete Time: 16:00 EDMS 11/10 16:00 Order name: Depakote 11/10 16:00 Order name: Valproic Acid (Depakene) Level; Complete Time: 16:46 EDMS 11/10 16:46 Interpretation: Abnormal: VALP < 3.0. cp 11/10 15:15 Order name: EKG; Complete Time: 15:16 cp 11/10 16:00 Order name: CT Head Brain wo Cont; Complete Time: 16:46 cp 11/10 16:46 Interpretation: Report reviewed. 11/10 21:08 Order name: SARS-COV-2 RT PCR; Complete Time: 06:37 EDMS 11/11 07:45 Order name: Potassium bw 11/10 15:15 Order name: Suicide Precautions; Complete Time: 16:13 cp 11/10 15:15 Order name: EKG - Nurse/Tech; Complete Time: 16:13 cp 11/10 15:15 Order name: IV Saline Lock; Complete Time: 15:51 cp 11/10 15:15 Order name: Labs collected and sent; Complete Time: 15:51 cp 11/10 15:15 Order name: Suicide Screening ([place]); Complete Time: 19:15 cp 11/10 15:15 Order name: Urine Dipstick-Ancillary (obtain specimen); Complete Time: 15:51 cp EC:00 Rate is 73 beats/min. Rhythm is regular. ME interval is normal. QRS interval is cp prolonged at 104 msec. QT interval is normal. T waves are Inverted in lead aVR. Interpreted by me. Reviewed by me. Administered Medications: 15:50 Drug: NS 0.9% 1000 ml Route: IV; Rate: 1 bolus; Site: Other; bw 15:50 Drug: Ativan 1 mg Route: IVP; Site: Other; bw 16:13 Follow up: Response: No adverse reaction bw 17:22 Drug: Ativan 1 mg Route: IM; Site: right deltoid; hb 18:34 Follow up: Response: No adverse reaction; Anxiety unchanged bw 17:28 Drug: Geodon 10 mg Route: IM; Site: right deltoid; bw 18:34 Follow up: Response: No adverse reaction; Anxiety unchanged bw 17:28 Drug: Benadryl (diphenhydrAMINE) 25 mg Route: IM; Site: left deltoid; bw 18:34 Follow up: Response: No adverse reaction; Anxiety unchanged bw 18:33 Drug: Ativan 2 mg Route: IM; Site: left deltoid; bw 19:27 Follow up: Response: No adverse reaction bw 19:28 Drug: Potassium Effervescent Tablet 50 mEq Route: PO; bw 22:11 Follow up: Response: No adverse reaction sf 23:41 Drug: Ativan 2 mg Route: IM; Site: right deltoid; sf 11/11 03:49 Follow up: Response: No adverse reaction sf 11/10 23:42 CANCELLED (Duplicate Order): Ativan 2 mg IM once 11/11 01:54 Drug: Geodon 20 mg Route: IM; Site: right deltoid; bb 03:49 Follow up: Response: No adverse reaction sf 01:54 Drug: Benadryl (diphenhydrAMINE) 25 mg Route: IM; Site: right deltoid; bb 03:49 Follow up: Response: No adverse reaction sf 02:35 Drug: Ativan 2 mg Route: IM; Site: left deltoid; bb 03:49 Follow up: Response: No adverse reaction sf Disposition: 01:00 Chart complete. cp 12:21 Co-signature as Attending Physician, Bill Tapia MD. rn Disposition: 11/10/20 21:08 Transfer ordered to Psych Facility. Diagnosis is Suicidal ideations. - Reason for transfer: Higher level of care. - Accepting physician is Dr. Kasper. - Condition is Stable. - Problem is new. - Symptoms have improved. Signatures: Dispatcher [employer] EDMS Alix Tompkins RN RN bb Nieto, Roman, MD MD rn Page, Corey, PA PA cp Pamella Anderson RN RN Renaldo Oquendo MD MD [facility] Drew Koenig RN RN sf Jacinta Bush RN RN Corrections: (The following items were deleted from the chart) 11/10 16:50 16:35 Normal except: K 3.2; GLUC 107. cp cp 20:29 19:45 CORONAVIRUS+MR.LAB.BRZ ordered. EDMS EDMS 23:42 23:38 Ativan 2 mg IM once ordered. [facility] 11/11 06:45 11/10 21:08 11/10/2020 21:08 Transfer ordered to Psych Facility. Diagnosis is Suicidal mh7 ideations. Reason for transfer: Higher level of care. Accepting physician is Doctor. Condition is Stable. Problem is new. Symptoms have improved. 11/11 10:50 06:45 11/10/2020 21:08 Transfer ordered to Psych Facility. Diagnosis is Suicidal bw ideations. Reason for transfer: Higher level of care. Accepting physician is Dr. Kasper. Condition is Stable. Problem is new. Symptoms have improved. mh7
[2020-11-11] MEDS ORDERED: ZIPRASIDONE MESYLA 20 MG/VIAL IM ONE (02:01)
[2020-11-11] MEDS ORDERED: DIPHENHYDRAMINE 50 MG/ML VIAL ONE (02:01)
[2020-11-11] MEDS ORDERED: WATER FOR INJ,STERILE 10 ML ONE (02:02)
[2020-11-11] MEDS ORDERED: LORazepam 2 MG/ML VIAL ONE (02:48)
[2020-11-11 11:01] VITALS: TEMP 98.3; O2SAT 98
[2020-11-11 11:02] VITALS: BP 130/75
--- NOTE | 2020-11-12 07:18 | EKG ---
Test Date: 2020-11-10 Test Time: 15:56:25 Boatbuilder Supervisor: DARSHAN MEASUREMENT RESULTS: Intervals: Rate: 73 MS: 172 QRSD: 104 QT: 380 QTc: 418 [place]: P: 37 MS: 172 QRS: -7 T: 48 INTERPRETIVE STATEMENTS: Normal sinus rhythm with sinus arrhythmia Normal ECG No previous ECG available for comparison Electronically Signed On 11-12-20 07:14:29 CDT by Jacky Packer
== END 2020-11-11 10:50 ==
LOC: ER 14:46
DX: R45.851 Suicidal ideations (principal); F44.81 Dissociative identity disorder; Z20.822 Contact with and (suspected) exposure to COVID-19; Z72.0 Tobacco use
CPT/HCPCS: 93005; 85025; 80048; 36415; 80320; 80329 ×2; 84132; 85610; 80076; 80164; 80307 ×8; 85730; 81003; 70450; 96372; 96374; 99285; U0003; J1200 ×2; J3486 ×2; J7030

== ENCOUNTER 2020-11-24 15:02 | Emergency (ER) | payer SELFPAY ==
--- OUTSIDE RECORDS SUMMARY | 2020-11-24 15:05 | XMS REPORT | Continuity of Care Document ---
:1985 Author Organization [facility] t Address [address] [place] [address] Care Team Providers Name Role Phone Lona MARVIN Attending Clinician Timothy Murphy DO Attending Clinician Alexandre Attending Clinician [phone] Payers Payer Name Policy Type Policy Number Effective Date Expiration Date S ource Problems This patient has no known problems. Allergies, Adverse Reactions, Alerts Allergy Allergy Status Severity Reaction(s) Onset Inactive Treating Comm ents Source Name Type Date Date Clinician No Known DA Active U 2017-08 [facility] [place] [facility] 00:00: d 00 [facility] No Known DA Active U [facility] 02-10 Clear s 00:00: Rajput 00 [facility] Medications This patient has no known medications. Procedures This patient has no known procedures. Encounters Start End Encounter Admission Attending Care Care Encounter Source Date/Time Date/Time Type Type Clinicians Facility Department ID 2020-11-07 2020-11-07 Refill Lona [facility] [id number] 00:00:00 00:00:00 [facility] [employer] [id number] Clear 4.2.7.2.686 [place] [id number] Medical 2 Office Building 2020-10-23 2020-10-23 Patient Jeffrey [facility] [id number] 00:00:00 00:00:00 Outreach [facility] [id number] [facility] 4.2.7.2.686 [place] [id number] 2020-09-21 2020-09-21 Telephone Lona [facility] [id number] 00:00:00 00:00:00 [facility] [employer] [id number] Clear 4.2.7.2.686 [place] [id number] [place] [address] Office Building 2020-05-01 2020-05-01 Office , [facility] [id number] 13:05:20 13:56:24 Visit [facility] 350.1.13.10 [facility] 4.2.7.2.686 [id number] 2020-05-01 2020-05-01 Telephone [facility] [id number] 00:00:00 00:00:00 [facility] 350.1.13.10 CLINICS 4.2.7.2.686 [id number] 2018-09-21 2018-09-21 Outpatient SHELLEY Schroeder [id number] [id number] 15:40:00 15:40:00 [place] [id number] Results Test Description Test Time Test [...] CA) 8.3 mg/dl 8.0-10.5 N CBC W/AUTO [id number] 05:30:00 Test Item Value Reference Range Interpretation [...] K/mm3 0.0-0.2 N DRUGS OF ABUSE SCREEN [id number] 09:39:00 Test Item Value Reference Interpretation Comments [...] on: 300 ng/mL Specimen comments: Clean CatchURINALYSIS [id number] 09:37:00 Test Item Value Reference Range Interpretation [...] FEW NONE BACU) Specimen comments: Clean CatchURINALYSIS [id number] 09:35:00 Test Item Value Reference Range Interpretation [...] Specimen comments: Clean Catch- XR CHEST 1 [id number] 09:35:00 FAX: Peter Noriega MD [phone] [place]: St: REG Name: NISA CARVALHO [facility] : 1985 Age/S: 33/M [address] [facility] Unit#: [id number] Loc: [place], [place]: [place] [id number] Acct: [id number] Dis Date: Status: REG ER PHONE #: [phone] Exam Date: 09/20/2018935 FAX #: [phone] Reason: Seizure EXAMS: CPT CODE: [id number] XR CHEST 1 V 86819 Chest Radiograph History: Seizure Comparison: July 11, 2018 Location: R16 A single frontal view of the chest is submitted. The heart appears unchanged in size. Pulmonary vasculature is unremarkable. The visualized lung lazaro appear to be free of disease. The bones appear unchanged. IMPRESSION: There is no radiographic evidence of acute cardiopulmonary disease. at 0934 Reported and signed by: Cristóbal Hudson M.D. CC: Peter Noriega MD Technologist: ARUNA OLIVARES Trnscrd Date/Time/By: 09/20/2018 (0937) : By: t.SDR.PMT PAGE 1 Signed Report FAX: ePter Noriega MD [phone] [place]: St: REG Name: NISA CARVALHO [facility] : 1985 Age/S: 33/M [address] [employer] Unit #: [id number] [place]: [place]: [place] [address] Acct: [id number] Dis Date: Status: REG ER PHONE #: [phone] Exam Date: 09/20/2018935 FAX #: [phone] Reason: Seizure EXAMS: CPT CODE: [id number] XR CHEST 1 V 86370 <Continued> Orig Print D/T: S: 09/20/2018 (0939) PAGE 2 Signed Report CBC W/O [id number] 09:32:00 Test Item Value Reference Range Interpretation [...] AP 1V (KUB)2015-10-11 16:41:00 FAX: Anna Coley [phone] [place]: St: [facility] Name: NISA CARVALHO [facility] : 1985 Age/S: 30/M [address] [place] [address] Unit#: [id number] Loc: [place] [address] Phys: Anna Jamil Acct: [id number] Dis Date: Status: [facility] PHONE #: [phone] Exam Date: 10/11/2015 163 FAX #: [phone] Reason: epigastric pain EXAMS: CPT CODE: [id number] XR ABDOMEN AP 1V (KUB) 82507 PROCEDURE: ABDOMEN SINGLE VIEW INDICATION: Epigastric pain. [...] and signed by: Wilfredo Sepulveda M.D. CC: nAna SCHWARTZ Technologist: RT Deven(R) Trnscrd Date/Time/By: 10/11/2015 (1640) : By: Shane Bernal Print D/T: S: 10/11/2015 (9510) PAGE 1 Signed Report
--- NOTE | 2020-11-24 17:50 | ER ---
Nurse's Notes [facility] Name: Byron Gutierrez Age: 35 yrs Sex: Male : 1985 Arrival Date: 11/24/2020 Time: 15:08 Bed Waiting Private MD: Diagnosis: Presentation: 11/24 15:24 Chief complaint: Patient states: CP started today. States he took his anxiety medicine, ll1 then awoke on the bed. Noticed SOB and chest pain since waking up. States he has had SOB and deep breathing for 2 weeks. No fever. Coronavirus screen: Client denies travel out of the [place] in the last 14 days. At this time, the client does not indicate any symptoms associated with coronavirus-19. Coronavirus screen: diarrhea, difficulty breathing, fatigue, headache, shortness of breath, Client presents with at least one sign or symptom that may indicate coronavirus-19. Standard/surgical mask placed on the client. Ebola Screen: Patient denies travel to an Ebola-affected area in the 21 days before illness onset. Initial Sepsis Screen: Does the patient meet any 2 criteria? No. Patient's initial sepsis screen is negative. Does the patient have a suspected source of infection? No. Patient's initial sepsis screen is negative. Risk Assessment: Do you want to hurt yourself or someone else? Patient reports no desire to harm self or others. Onset of symptoms was November 24, 2020. 15:24 Method Of Arrival: EMS: [facility] ll1 15:24 Acuity: KYLEIGH 3 ll1 Triage Assessment: 15:28 General: Appears in no apparent distress. Behavior is calm, cooperative, appropriate ll1 for age. Pain: Complains of pain in chest Quality of pain is described as aching. Neuro: Level of Consciousness is awake, alert, obeys commands, Oriented to person, place, time, situation, Appropriate for age Moves all extremities. Full function Gait is steady, Speech is normal, Facial symmetry appears normal, Reports a syncopal episode. Cardiovascular: Reports chest pain, shortness of breath, Heart tones S1 S2 Capillary refill < 3 seconds Clubbing of nail beds is absent JVD is absent Patient's skin is warm and dry. Rhythm is regular. Respiratory: Reports shortness of breath Airway is patent Trachea midline Respiratory effort is even, unlabored, Respiratory pattern is regular, symmetrical, Breath sounds are clear bilaterally. GI: No deficits noted. Historical: - Allergies: 15:28 No Known Allergies; ll1 - PMHx: 15:28 Anxiety; Seizures; ll1 - PSHx: 15:28 R foot, R hand, R ear x 12; ll1 - Immunization history:: Flu vaccine is up to date. - Social history:: Smoking status: Patient denies any tobacco usage or history of. Vital Signs: 15:24 BP 159 / 81; Pulse 87; Resp 17; Temp 97.3; Pulse Ox 98% ; Weight 140.16 kg; Height 6 ll1 ft. 2 in. (187.96 cm); Pain 5/10; 15:24 Body Mass Index 39.67 (140.16 kg, 187.96 cm) ll1 ED Course: 15:08 Patient arrived in ED. ds1 15:27 Triage completed. ll1 15:28 Arm band placed on. ll1 Administered Medications: No medications were administered Outcome: 17:49 Patient left the ED. ll1 Signatures: Aracelis Rodarte ds1 Gertrudis Henderson, RN RN ll1
[2020-11-24 18:18] VITALS: BP 159/81; TEMP 97.3; O2SAT 98
--- NOTE | 2020-11-25 08:17 | EKG ---
Test Date: 2020-11-24 Test Time: 15:33:08 [employer]: KENZIE MEASUREMENT RESULTS: Intervals: Rate: 76 ME: 144 QRSD: 84 QT: 360 QTc: 405 [place]: P: 35 ME: 144 QRS: 59 T: 22 INTERPRETIVE STATEMENTS: Normal sinus rhythm Normal ECG Compared to ECG 11/10/2020 15:56:25 Sinus arrhythmia no longer present Electronically Signed On 11-25-20 08:15:27 CDT by Jacky Packer
== END 2020-11-24 17:49 | disposition left against medical advice (07) ==
LOC: ER 15:02
DX: Z53.21 Procedure and treatment not carried out due to patient leaving prior to being seen by health care provider (principal)
CPT/HCPCS: 93005; 99282

== ENCOUNTER 2020-12-26 14:55 | Emergency (ER) | payer OTHER ==
--- OUTSIDE RECORDS SUMMARY | 2020-12-26 14:57 | XMS REPORT | Continuity of Care Document ---
:1985 Author Organization [facility] t Address [address] [place] [address] Care Team Providers Name Role Phone Pollard Attending Clinician Lona MARVIN Attending Clinician Alexandre Attending Clinician [phone] Payers Payer Name Policy Type Policy Number Effective Date Expiration Date S ource Problems This patient has no known problems. Allergies, Adverse Reactions, Alerts Allergy Allergy Status Severity Reaction(s) Onset Inactive Treating Comm ents Source Name Type Date Date Clinician No Known DA Active U 2017-08 [facility] 2-08 [place] 00:00: d 00 [facility] No Known DA Active U [facility] 02-10 Clear s 00:00: Rajput 00 [facility] Medications This patient has no known medications. Procedures This patient has no known procedures. Encounters Start End Encounter Admission Attending Care Care Encounter Source Date/Time Date/Time Type Type Clinicians Facility Department ID 2020-11-21 2020-11-21 Office Jose [facility] [id number] 11:47:02 14:29:28 Visit [employer] 350.1.13.10 FAMILY 4.2.7.2.686 [facility] [id number] [place] [address] CLINIC 2020-10-29 2020-10-29 Telephone [facility] [id number] 00:00:00 00:00:00 [facility] [place] 350.1.13.10 Clear 4.2.7.2.686 [place] [id number] Medical 2 Office Building 2018-09-21 2018-09-21 Outpatient Alexandre [facility] [id number] 15:40:00 15:40:00 [place] [id number] Results Test Description Test Time Test [...] CA) 8.3 mg/dl 8.0-10.5 N CBC W/AUTO [id number] 05:30:00 Test Item Value Reference Range Interpretation [...] K/mm3 0.0-0.2 N DRUGS OF ABUSE SCREEN [id number] 09:39:00 Test Item Value Reference Interpretation Comments [...] on: 300 ng/mL Specimen comments: Clean CatchURINALYSIS [id number] 09:37:00 Test Item Value Reference Range Interpretation [...] FEW NONE BACU) Specimen comments: Clean CatchURINALYSIS [id number] 09:35:00 Test Item Value Reference Range Interpretation [...] Specimen comments: Clean Catch- XR CHEST 1 [id number] 09:35:00 FAX: Peter Noriega MD [phone] [place]: [address] St: REG Name: NISA CARVALHO [facility] : 1985 Age/S: 33/M [address] [employer] Unit#: [id number] Loc: [place], [place]: [place] [address] Acct: [id number] Dis Date: Status: REG ER PHONE #: [phone] Exam Date: 09/20/2018935 FAX #: [phone] Reason: Seizure EXAMS: CPT CODE: [id number] XR CHEST 1 V 05056 Chest Radiograph History: Seizure Comparison: July 11, 2018 Location: R16 A single frontal view of the chest is submitted. The heart appears unchanged in size. Pulmonary vasculature is unremarkable. The visualized lung lazaro appear to be free of disease. The bones appear unchanged. IMPRESSION: There is no radiographic evidence of acute cardiopulmonary disease. at 0935 Reported and signed by: Cristóbal Hudson M.D. CC: Peter Noriega MD Technologist: ARUNA OLIVARES Trnscrd Date/Time/By: 09/20/2018 (0935) : By: DeannPMT PAGE 1 Signed Report FAX: Peter Noriega MD [phone] [place]: St: REG Name: NISA CARVALHO [facility] : 1985 Age/S: 33/M [address] [facility] Unit #: [id number] [place] [address] Acct: [id number] Dis Date: Status: REG ER PHONE #: [phone] Exam Date: 09/20/2018 0936 FAX #: [phone] Reason: Seizure EXAMS: CPT CODE: [id number] XR CHEST 1 V 90985 <Continued> Orig Print D/T: S: 09/20/2018 (6069) PAGE 2 Signed Report CBC W/O [id number] 09:32:00 Test Item Value Reference Range Interpretation [...] AP 1V (KUB)2015-10-11 16:41:00 FAX: Anna Coley [phone] [place]: St: [place] Name: NISA CARVALHO [facility] : 1985 Age/S: 30/M [address] [place] [address] Blvd Unit#: [id number] Loc: [place] [address] Phys: Anna Jamil Acct: [id number] Dis Date: Status: UNK PHONE #: [phone] Exam Date: 10/11/2015 1630 FAX #: [phone] Reason: epigastric pain EXAMS: CPT CODE: [id number] XR ABDOMEN AP 1V (KUB) 21158 PROCEDURE: ABDOMEN SINGLE VIEW INDICATION: Epigastric pain. [...] is intact. IMPRESSION: Negative. SL: 01 at 1531 Reported and signed by: Wilfredo Sepulveda M.D. CC: Anna SCHWARTZ Technologist: RT Deven(Trevor) Trnscrd Date/Time/By: 10/11/2015 (0598) : By: Shane Orig Print D/T: S: 10/11/2015 (8086) PAGE 1 Signed Report
[2020-12-26 15:18] LABS: Urine Blood Negative (Negative); Urine Glucose Negative (Negative); Urine Protein Negative (Negative); Urine Specific Gravity >=1.030 (1.005-1.030)
[2020-12-26 15:42] LABS: Absolute Lymphocytes (CBC) 2.8 K/uL (0.7-4.9); Hematocrit 41.7 % (39.6-49.0); Lymphocytes % 44.6 % (15.3-44.8); MPV 9.4 fL (7.6-11.3)
[2020-12-26 15:44] LABS: Urine Bacteria <20 /HPF (NONE SEEN); Urine RBC <5 /HPF (NONE SEEN)
[2020-12-26] MEDS ORDERED: ONDANSETRON 4 MG/2 ML VIAL ONE (15:58)
[2020-12-26] MEDS ORDERED: NA CHLORIDE 0.9% 1,000 ML ONE (15:58)
[2020-12-26] MEDS ORDERED: MORPHINE 4 MG/ML SYR ONE (15:58)
[2020-12-26 16:18] LABS: ALT/SGPT 16 U/L (12-78); AST/SGOT 8 U/L (15-37); Albumin 3.6 g/dL (3.4-5.0); Alkaline Phosphatase 69 U/L (45-117); BUN Blood Urea Nitrogen 8 mg/dL (7-18); Bicarbonate 28 mmol/L (21-32); Bilirubin Direct < 0.1 mg/dL (0-0.2); Bilirubin Total 0.3 mg/dL (0.2-1.0); Glucose Level 112 mg/dL (74-106); Lipase 76 U/L (73-393); Potassium 3.6 mmol/L (3.5-5.1); Protein, Total 7.8 g/dL (6.4-8.2); Sodium Level 143 mmol/L (136-145)
--- NOTE | 2020-12-26 16:28 | RAD REPORT ---
EXAM DESCRIPTION: CT - Stone Protocol - 12/26/2020 3:50 pm CLINICAL HISTORY: Abdominal pain. Right flank pain COMPARISON: None. TECHNIQUE: Computed axial tomography of the abdomen pelvis was obtained without oral or IV contrast. Lack of IV and oral contrast limits evaluation of solid organs, bowel, and vessels. Coronal reformat shaye images were obtained and reviewed. All CT scans are performed using dose optimization technique as appropriate and may include automated exposure control or mA/KV adjustment according to patient size. FINDINGS: A renal calculus is not seen. An ureteral calculus is not noted. A bladder calculus is not present. The liver, spleen, pancreas and adrenals appear grossly normal There is no evidence of diverticulitis. The appendix appears normal Moderate amount stool within the colon IMPRESSION: Negative for a genitourinary calculus Moderate amount stool within the colon
--- NOTE | 2020-12-26 17:31 | EDPHYS ---
Physician Documentation [facility] Name: Byron Gutierrez Age: 35 yrs Sex: Male : 1985 Arrival Date: 12/26/2020 Time: 14:59 Bed 14 Private MD: ED Physician Lm Dennis HPI: 12/26 15:15 This 35 yrs old Male presents to ER via Ambulatory with complaints of Back jmm Pain. 15:15 The patient presents with pain that is acute, with no known mechanism of injury. Onset: jmm The symptoms/episode began/occurred gradually, 2 week(s) ago. The pain radiates to the abdomen. Associated signs and symptoms: Pertinent positives: dysuria, Pertinent negatives: fever. Modifying factors: The patient symptoms are alleviated by nothing, the patient symptoms are aggravated by nothing. The patient has experienced similar episodes in the past. Historical: - Allergies: 15:10 No Known Allergies; em - Home Meds: 15:47 Depakote Oral [Active]; Seroquel Oral [Active]; ap3 - PMHx: 15:10 Anxiety; Dissociative Identity Disorder; Seizures; em - PSHx: 15:10 R foot, R hand, R ear x 12; em - Immunization history:: Adult Immunizations up to date. - Social history:: Smoking status: Patient denies any tobacco usage or history of. ROS: 15:15 Constitutional: Negative for fever, chills, and weight loss, Cardiovascular: Negative jmm for chest pain, palpitations, and edema, Respiratory: Negative for shortness of breath, cough, wheezing, and pleuritic chest pain. 15:15 Abdomen/GI: Positive for abdominal pain. 15:15 Back: Positive for flank pain, on the right. 15:15 All other systems are negative. Exam: 15:15 Constitutional: This is a well developed, well nourished patient who is awake, alert, jmm and in no acute distress. Head/Face: atraumatic. Eyes: EOMI, no conjunctival erythema appreciated ENT: Moist Mucus Membranes Neck: Trachea midline, Supple Chest/axilla: Normal chest wall appearance and motion. Cardiovascular: Regular rate and rhythm. No edema appreciated Respiratory: Normal respirations, no respiratory distress appreciated 15:15 Skin: General appearance color normal MS/ Extremity: Moves all extremities, no obvious deformities appreciated, no edema noted to the lower extremities Neuro: Awake and alert, normal gait Psych: Behavior is normal, Mood is normal, Patient is cooperative and pleasant 15:15 Abdomen/GI: Inspection: abdomen appears normal, Bowel sounds: normal. 15:15 Back: CVA tenderness, that is mild, is noted on the right. Vital Signs: 15:08 BP 125 / 81; Pulse 81; Resp 16; Temp 98.0; Pulse Ox 99% on R/A; Weight 140.61 kg; em Height 6 ft. 2 in. (187.96 cm); Pain 7/10; 16:01 BP 123 / 71; Pulse 62; Pulse Ox 96% on R/A; ap3 16:04 Pain 4/10; kg 16:58 BP 123 / 65; Pulse 65; Pulse Ox 100% on R/A; ap3 15:08 Body Mass Index 39.80 (140.61 kg, 187.96 cm) em MDM: 15:15 Patient medically screened. [facility] 17:29 Data reviewed: vital signs, nurses notes. Counseling: I had a detailed discussion with lissette the patient and/or guardian regarding: the historical points, exam findings, and any diagnostic results supporting the discharge/admit diagnosis, lab results, radiology results, to return to the emergency department if symptoms worsen or persist or if there are any questions or concerns that arise at home. 12/26 15:18 Order name: Urine Microscopic Only 12/26 15:18 Order name: Urine Dipstick-Ancillary; Complete Time: 15:23 [facility] 12/26 15:19 Order name: Urine Microscopic Only; Complete Time: 16:21 [facility] 12/26 15:24 Order name: Basic Metabolic Panel; Complete Time: 16:21 [facility] 12/26 15:24 Order name: CBC with Diff; Complete Time: 16:21 [facility] 12/26 15:24 Order name: Hepatic Function; Complete Time: 16:21 [facility] 12/26 15:18 Order name: Urine Dipstick-Ancillary (obtain specimen); Complete Time: 15:18 12/26 15:24 Order name: Lipase; Complete Time: 16:21 [facility] 12/26 15:24 Order name: IV Saline Lock; Complete Time: 15:35 [facility] 12/26 15:29 Order name: CT Stone Protocol; Complete Time: 17:13 [facility] 12/26 15:46 Order name: Urine Culture [facility] 12/26 15:24 Order name: Labs collected and sent; Complete Time: 15:35 [facility] Administered Medications: 15:43 Drug: NS 0.9% 1000 ml Route: IV; Rate: 1 bolus; Site: right antecubital; ap3 17:00 Follow up: IV Status: Completed infusion ap3 17:30 Follow up: IV Status: Completed infusion; IV Intake: 1000ml kg 15:43 Drug: morphine 4 mg Route: IVP; Site: right antecubital; ap3 16:04 Follow up: Pain 4/10 Adult; Response: No adverse reaction; Marked relief of symptoms; kg Pain is decreased 15:43 Drug: Zofran (Ondansetron) 4 mg Route: IVP; Site: right antecubital; ap3 16:04 Follow up: Response: No adverse reaction; Marked relief of symptoms kg Disposition: 18:17 Co-signature as Attending Physician, Lm Dennis MD I agree with the assessment and kdr plan of care. Disposition: 12/26/20 17:30 Discharged to Home. Impression: Urinary tract infection, site not specified. - Condition is Stable. - Discharge Instructions: Urinary Tract Infection, Adult. - Prescriptions for Cephalexin 500 mg Oral Capsule - take 1 capsule by ORAL route every 8 hours for 10 days; 30 capsule. - Medication Reconciliation Form, Thank You Letter, Antibiotic Education, Prescription Opioid Use form. - Follow up: Private Physician; When: 2 - 3 days; Reason: Recheck today's complaints, Continuance of care, Re-evaluation by your physician. Signatures: Dispatcher [employer] [facility] Lm Dennis MD MD kdr Mickail, Joel, PA PA [facility] Gilmar Pacheco, RN RN Marcy Nguyen RN RN ap3 Yaneth Gonzalez kg Corrections: (The following items were deleted from the chart) 17:42 17:30 12/26/2020 17:30 Discharged to Home. Impression: Urinary tract infection, site ap3 not specified. Condition is Stable. Forms are Medication Reconciliation Form, Thank You Letter, Antibiotic Education, Prescription Opioid Use. Follow up: Private Physician; When: 2 - 3 days; Reason: Recheck today's complaints, Continuance of care, Re-evaluation by your physician. [email or web address]
--- NOTE | 2020-12-26 17:31 | ER ---
Nurse's Notes [facility] Name: Byron Gutierrez Age: 35 yrs Sex: Male : 1985 Arrival Date: 12/26/2020 Time: 14:59 Bed 14 Private MD: Diagnosis: Urinary tract infection, site not specified Presentation: 12/26 15:08 Chief complaint: Patient states: right sided back pain with N/V that started 2 weeks em ago, also reports burning with urination and foul odor, denies discharge, also reports abdominal pain. Coronavirus screen: Client denies travel out of the [place] in the last 14 days. Ebola Screen: Patient negative for fever greater than or equal to 101.5 degrees Fahrenheit, and additional compatible Ebola Virus Disease symptoms Patient denies exposure to infectious person. Patient denies travel to an Ebola-affected area in the 21 days before illness onset. No symptoms or risks identified at this time. Initial Sepsis Screen: Does the patient meet any 2 criteria? No. Patient's initial sepsis screen is negative. Does the patient have a suspected source of infection? Yes: Dysuria/Frequency/Urgency/UTI. Risk Assessment: Do you want to hurt yourself or someone else? Patient reports no desire to harm self or others. Onset of symptoms was December 26, 2020. 15:08 Method Of Arrival: Ambulatory em 15:08 Acuity: KYLEIGH 3 em Historical: - Allergies: 15:10 No Known Allergies; em - Home Meds: 15:47 Depakote Oral [Active]; Seroquel Oral [Active]; ap3 - PMHx: 15:10 Anxiety; Dissociative Identity Disorder; Seizures; em - PSHx: 15:10 R foot, R hand, R ear x 12; em - Immunization history:: Adult Immunizations up to date. - Social history:: Smoking status: Patient denies any tobacco usage or history of. Screenin:46 Abuse screen: Denies threats or abuse. Nutritional screening: No deficits noted. ap3 Tuberculosis screening: No symptoms or risk factors identified. Fall Risk None identified. 15:46 Abuse screen: Denies threats or abuse. Denies injuries from another. Nutritional kg screening: No deficits noted. Tuberculosis screening: No symptoms or risk factors identified. Fall Risk None identified. No fall in past 12 months (0 pts). No secondary diagnosis (0 pts). IV access (20 points). Ambulatory Aid- None/Bed Rest/Nurse Assist (0 pts). Gait- Normal/Bed Rest/Wheelchair (0 pts) Mental Status- Oriented to own ability (0 pts). Total Fields Fall Scale indicates No Risk (0-24 pts). Assessment: 15:44 General: Appears uncomfortable, Behavior is cooperative, appropriate for age, restless. ap3 Pain: Complains of pain in right low back Pain radiates to right lower quadrant Pain currently is 8 out of 10 on a pain scale. Pain began 2-3 days ago. Neuro: Level of Consciousness is awake, alert, obeys commands, Oriented to person, place, time, situation, Gait is steady, Speech is normal. Cardiovascular: Capillary refill < 3 seconds Patient's skin is warm and dry. Respiratory: Airway is patent Respiratory effort is even, unlabored, Respiratory pattern is regular, symmetrical. GI: No signs and/or symptoms were reported involving the gastrointestinal system. : Reports pain with urination, urgency, since 2-3 days ago urinary frequency, since 2-3 days ago. EENT: No signs and/or symptoms were reported regarding the EENT system. Derm: No signs and/or symptoms reported regarding the dermatologic system. 16:58 Reassessment: Patient and/or family updated on plan of care and expected duration. Pain ap3 level reassessed. Patient is alert, oriented x 3, equal unlabored respirations, skin warm/dry/pink. Vital Signs: 15:08 BP 125 / 81; Pulse 81; Resp 16; Temp 98.0; Pulse Ox 99% on R/A; Weight 140.61 kg; em Height 6 ft. 2 in. (187.96 cm); Pain 7/10; 16:01 BP 123 / 71; Pulse 62; Pulse Ox 96% on R/A; ap3 16:04 Pain 4/10; kg 16:58 BP 123 / 65; Pulse 65; Pulse Ox 100% on R/A; ap3 15:08 Body Mass Index 39.80 (140.61 kg, 187.96 cm) em ED Course: 14:59 Patient arrived in ED. mr 15:09 Triage completed. em 15:10 Arm band placed on. em 15:11 Yaneth Gonzalez is Primary Nurse. kg 15:13 Rafael Ramirez PA is PHCP. [facility] 15:13 Lm Dennis MD is Attending Physician. jmm 15:27 Inserted saline lock: 20 gauge in right antecubital area, using aseptic technique. kg 15:40 Urine Microscopic Only Sent. sv 15:[address] via wheelchair. ap3 15:47 Patient has correct armband on for positive identification. Pulse ox on. NIBP on. Door ap3 closed. Noise minimized. 15:49 CT Stone Protocol In Process Unspecified. EDMS 16:00 Patient moved back from CT. ap3 17:40 No provider procedures requiring assistance completed. IV discontinued, intact, kg bleeding controlled, No redness/swelling at site. Pressure dressing applied. Administered Medications: 15:43 Drug: NS 0.9% 1000 ml Route: IV; Rate: 1 bolus; Site: right antecubital; ap3 17:00 Follow up: IV Status: Completed infusion ap3 17:30 Follow up: IV Status: Completed infusion; IV Intake: 1000ml kg 15:43 Drug: morphine 4 mg Route: IVP; Site: right antecubital; ap3 16:04 Follow up: Pain 4/10 Adult; Response: No adverse reaction; Marked relief of symptoms; kg Pain is decreased 15:43 Drug: Zofran (Ondansetron) 4 mg Route: IVP; Site: right antecubital; ap3 16:04 Follow up: Response: No adverse reaction; Marked relief of symptoms kg Intake: 17:30 IV: 1000ml; Total: 1000ml. kg Outcome: 17:30 Discharge ordered by . [facility] 17:41 Discharged to home ambulatory, with significant other. ap3 17:41 Condition: good 17:41 Discharge instructions given to patient, Instructed on discharge instructions, follow up and referral plans. no drinking with medication, medication usage, Demonstrated understanding of instructions, follow-up care, medications, Prescriptions given X 1. 17:42 Patient left the ED. ap3 Signatures: Dispatcher [employer] Farrah Nicholas, RN Rafael Sosa PA PA [facility] Karie CliffordGilmar RN RN em Prokisch, Amanda, RN RN ap3 Yaneth Gonzalez kg
[2020-12-26 19:32] VITALS: TEMP 98
[2020-12-26 19:36] VITALS: BP 123/65; O2SAT 100
== END 2020-12-26 17:42 | disposition home or self-care (01) ==
LOC: ER 14:55
DX: N39.0 Urinary tract infection, site not specified (principal); F41.9 Anxiety disorder, unspecified; F44.81 Dissociative identity disorder
CPT/HCPCS: 96361; 87088; 85025; 87086; 80048; 36415; 80076; 83690; 76377; 74176; 96375; 96374; 99284; J7030; J2405; 81003; 81015

== ENCOUNTER 2021-01-11 19:26 | Emergency (ER) | payer OTHER ==
[2021-01-11 20:03] LABS: Urine Blood Negative (Negative); Urine Glucose Negative (Negative); Urine Protein Negative (Negative); Urine Specific Gravity >=1.030 (1.005-1.030); Urine pH 5.5 (5.0-7.0)
[2021-01-11 20:08] LABS: Absolute Lymphocytes (CBC) 3.5 K/uL (0.7-4.9); Basophils % 1.2 % (0-1.3); Hematocrit 40.3 % (39.6-49.0); Lymphocytes % 47.3 % (15.3-44.8); RBC Red Blood Cell Count 4.86 M/uL (4.33-5.43)
[2021-01-11 20:23] LABS: ALT/SGPT 16 U/L (12-78); AST/SGOT 12 U/L (15-37); Albumin 3.4 g/dL (3.4-5.0); Alkaline Phosphatase 65 U/L (45-117); BUN Blood Urea Nitrogen 14 mg/dL (7-18); Bicarbonate 25 mmol/L (21-32); Bilirubin Direct < 0.1 mg/dL (0-0.2); Bilirubin Total 0.2 mg/dL (0.2-1.0); Glucose Level 112 mg/dL (74-106); Lipase 81 U/L (73-393); Potassium 4.3 mmol/L (3.5-5.1); Protein, Total 7.8 g/dL (6.4-8.2); Sodium Level 140 mmol/L (136-145)
[2021-01-11 20:35] LABS: Urine Amorphous Sediment 1+ /HPF (NONE SEEN); Urine Bacteria <20 /HPF (NONE SEEN); Urine Mucus 2+ /HPF (NONE SEEN); Urine RBC <5 /HPF (NONE SEEN)
[2021-01-11] MEDS ORDERED: MORPHINE 4 MG/ML SYR ONE (20:45)
--- NOTE | 2021-01-11 20:55 | RAD REPORT ---
EXAM DESCRIPTION: CTAbdomen Pelvis W Contrast - 01/11/2021 8:35 pm CLINICAL HISTORY: Abdominal pain. right flank pain COMPARISON: No comparisons TECHNIQUE: Biphasic CT imaging of the abdomen and pelvis was performed with 100 ml non-ionic IV cont rast. All CT scans are performed using dose optimization technique as appropriate and may include automated exposure control or mA/KV adjustment according to patient size. FINDINGS: The lung bases are clear. The liver, spleen, pancreas, adrenal glands and kidneys are within normal limits. No bowel obstruction, free air, free fluid or abscess. The appendix is normal. No evidence of signi ficant lymphadenopathy. No suspicious bony findings. IMPRESSION: No acute intra-abdominal or pelvic finding.
--- NOTE | 2021-01-11 23:08 | ER ---
Nurse's Notes [facility] Name: Byron Gutierrez Age: 35 yrs Sex: Male : 1985 Arrival Date: 01/11/2021 Time: 19:28 Bed 23 Private MD: Diagnosis: Cholelithiasis;Urinary tract infection, site not specified Presentation: 01/11 19:39 Chief complaint: Patient states: Pt states was seen a couple of weeks ago for the same vg1 Right Flank pain. Pt states the pain starts in Right flank and radiates to the front of ABD and down the right side of groin. Pt states burning upon urinating and has an odor. Coronavirus screen: Client denies travel out of the [place] in the last 14 days. Ebola Screen: Patient negative for fever greater than or equal to 101.5 degrees Fahrenheit, and additional compatible Ebola Virus Disease symptoms. Initial Sepsis Screen: Does the patient meet any 2 criteria? No. Patient's initial sepsis screen is negative. Does the patient have a suspected source of infection? No. Patient's initial sepsis screen is negative. Risk Assessment: Do you want to hurt yourself or someone else? Patient reports no desire to harm self or others. Onset of symptoms was January 11, 2021. 19:39 Method Of Arrival: Ambulatory vg1 19:39 Acuity: KYLEIGH 3 vg1 Triage Assessment: 19:42 General: Appears in no apparent distress. uncomfortable, Behavior is calm, cooperative. vg1 Pain: Complains of pain in right upper quadrant and right lower quadrant, Right flank Pain currently is 7 out of 10 on a pain scale. GI: Abdomen is round non-distended. Historical: - Allergies: 19:42 No Known Allergies; vg1 - Home Meds: 19:42 Depakote Oral [Active]; Seroquel Oral [Active]; Hydroxyzine Oral [Active]; vg1 - PMHx: 19:42 Anxiety; Dissociative Identity Disorder; Seizures; vg1 - Immunization history:: Adult Immunizations up to date. - Social history:: Smoking status: Patient denies any tobacco usage or history of. Screenin:07 Abuse screen: Denies threats or abuse. Denies injuries from another. Nutritional aj1 screening: No deficits noted. Tuberculosis screening: No symptoms or risk factors identified. 23:27 Fall Risk None identified. Assessment: 20:07 General: Appears in no apparent distress. uncomfortable, Behavior is cooperative, aj1 appropriate for age, restless. Pain: Complains of pain in back and abdomen Pain currently is 10 out of 10 on a pain scale. Quality of pain is described as sharp, shooting. Neuro: Level of Consciousness is awake, alert, obeys commands, Oriented to person, place, time, situation. Cardiovascular: Patient's skin is warm and dry. Respiratory: Airway is patent Respiratory effort is even, unlabored, Respiratory pattern is regular, symmetrical. GI: Abdomen is round non-distended, Bowel sounds present X 4 quads. Abd is soft X 4 quads Abdomen is tender to palpation X 4 quads. Reports lower abdominal pain, upper abdominal pain, nausea. : Reports burning with urination. EENT: No signs and/or symptoms were reported regarding the EENT system. Derm: No signs and/or symptoms reported regarding the dermatologic system. Skin is pink, warm \T\ dry. normal. Musculoskeletal: No signs and/or symptoms reported regarding the musculoskeletal system. Circulation, motion, and sensation intact. 21:10 Reassessment: Patient appears in no apparent distress at this time. No changes from aj1 previously documented assessment. Patient and/or family updated on plan of care and expected duration. Pain level reassessed. Patient is alert, oriented x 3, equal unlabored respirations, skin warm/dry/pink. 22:10 Reassessment: Patient appears in no apparent distress at this time. No changes from aj1 previously documented assessment. Patient and/or family updated on plan of care and expected duration. Pain level reassessed. Patient is alert, oriented x 3, equal unlabored respirations, skin warm/dry/pink. Vital Signs: 19:39 BP 131 / 74; Pulse 87; Resp 18; Temp 98.1(O); Pulse Ox 98% ; Weight 140.61 kg; Height 6 vg1 ft. 2 in. (187.96 cm); Pain 7/10; 22:46 BP 129 / 75; Pulse 88; Resp 16; Pulse Ox 98% on R/A; aj1 19:39 Body Mass Index 39.80 (140.61 kg, 187.96 cm) 1 ED Course: 19:28 Patient arrived in ED. as 19:41 Indira Herrera, RN is Primary Nurse. aj1 19:41 Triage completed. vg1 19:42 Arm band placed on. vg1 19:47 Oh Franco PA is PHCP. cp 19:47 Renaldo Oquendo MD is Attending Physician. cp 20:07 Patient has correct armband on for positive identification. Bed in low position. Call aj1 light in reach. Side rails up X 1. 20:07 No provider procedures requiring assistance completed. Initial lab(s) drawn, by mt, samantha sent to lab. Urine collected: clean catch specimen, clear. Inserted saline lock: 20 gauge in right antecubital area, using aseptic technique. Blood collected. 20:35 CT Abd/Pelvis - IV Contrast Only In Process Unspecified. EDMS 21:27 US Abdomen Limited: RUQ/gallbladder In Process Unspecified. EDMS 23:07 Emiliano Lopez MD is Referral Physician. cp 23:27 IV discontinued, intact, bleeding controlled, No redness/swelling at site. Administered Medications: 20:26 Drug: morphine 4 mg Route: IVP; Site: right antecubital; aj1 23:04 Drug: Rocephin (cefTRIAXone) 1 grams Route: IV; Rate: calculated rate; Site: right [facility] antecubital; Outcome: 23:07 Discharge ordered by . 23:27 Discharged to home ambulatory. 23:27 Condition: stable 23:27 Discharge instructions given to patient, Instructed on discharge instructions, follow up and referral plans. no drinking with medication, no driving heavy equipment, medication usage, POC Demonstrated understanding of instructions, follow-up care, medications, POC Prescriptions given X 3. 23:28 Patient left the ED. Signatures: Dispatcher [employer] EDNH Indira Herrera, RN RN aj1 Phuong Ponce Corey, PA PA cp Irvin Dos Santos RN RN Cora Cruz RN RN [facility]
--- NOTE | 2021-01-11 23:08 | EDPHYS ---
Physician Documentation [facility] Name: Byron Gutierrez Age: 35 yrs Sex: Male : 1985 Arrival Date: 01/11/2021 Time: 19:28 Bed 23 Private MD: ED Physician Renaldo Oquendo HPI: 01/11 20:00 This 35 yrs old Male presents to ER via Ambulatory with complaints of Flank cp Pain, Abdominal Pain. 20:00 The patient complains of pain in the right flank. The pain radiates to the back and cp abdomen and right groin. Onset: The symptoms/episode began/occurred 1 month(s) ago. Associated signs and symptoms: Pertinent positives: dysuria, urine odor, Pertinent negatives: diarrhea, fever, hematuria, vomiting. Severity of pain: in the emergency department the pain is actually worse moderately. seen in this ED several weeks with similar complaints and diagnosed with UTI as reported by patient. Historical: - Allergies: 19:42 No Known Allergies; vg1 - Home Meds: 19:42 Depakote Oral [Active]; Seroquel Oral [Active]; Hydroxyzine Oral [Active]; vg1 - PMHx: 19:42 Anxiety; Dissociative Identity Disorder; Seizures; vg1 - Immunization history:: Adult Immunizations up to date. - Social history:: Smoking status: Patient denies any tobacco usage or history of. ROS: 20:05 Constitutional: Negative for body aches, chills, fever, poor PO intake. cp 20:05 Eyes: Negative for injury, pain, redness, and discharge. cp 20:05 ENT: Negative for ear pain, sore throat, difficulty swallowing, difficulty handling secretions. 20:05 Cardiovascular: Negative for chest pain, palpitations. 20:05 Respiratory: Negative for cough, shortness of breath, wheezing. 20:05 Abdomen/GI: Positive for abdominal pain, Negative for vomiting, diarrhea, constipation. 20:05 Back: Positive for flank pain, on the right, Negative for injury or acute deformity, decreased range of motion. 20:05 : Positive for burning with urination, foul smelling urine, Negative for testicular pain 20:05 Skin: Negative for rash. 20:05 Neuro: Negative for altered mental status, dizziness, headache, syncope, weakness. 20:05 All other systems are negative. Exam: 20:10 Constitutional: The patient appears in no acute distress, alert, awake, cp non-diaphoretic, non-toxic, well developed, well nourished, obese, uncomfortable. 20:10 Head/Face: Normocephalic, atraumatic. cp 20:10 Eyes: Periorbital structures: appear normal, Conjunctiva: normal, no exudate, no injection, Sclera: no appreciated abnormality, Lids and lashes: appear normal, bilaterally. 20:10 ENT: External ear(s): are unremarkable, Nose: is normal, Mouth: Lips: moist, Oral mucosa: moist, Posterior pharynx: Airway: no evidence of obstruction, patent. 20:10 Chest/axilla: Inspection: normal, Palpation: is normal, no crepitus, no tenderness. 20:10 Cardiovascular: Rate: normal, Rhythm: regular. 20:10 Respiratory: the patient does not display signs of respiratory distress, Respirations: normal, no use of accessory muscles, no retractions, labored breathing, is not present, Breath sounds: are clear throughout, no decreased breath sounds. 20:10 Abdomen/GI: Inspection: abdomen appears normal, Bowel sounds: active, all quadrants, Palpation: soft, in all quadrants, moderate abdominal tenderness, in the anterior aspect of right lateral abdomen, posterior aspect of right lateral abdomen and right upper quadrant, rebound tenderness, is not appreciated, voluntary guarding, is elicited in the anterior aspect of right lateral abdomen, posterior aspect of right lateral abdomen and right upper quadrant. 20:10 Back: CVA tenderness, that is severe, is noted on the right. 20:10 Skin: no rash present. Vital Signs: 19:39 BP 131 / 74; Pulse 87; Resp 18; Temp 98.1(O); Pulse Ox 98% ; Weight 140.61 kg; Height 6 vg1 ft. 2 in. (187.96 cm); Pain 7/10; 22:46 BP 129 / 75; Pulse 88; Resp 16; Pulse Ox 98% on R/A; aj1 19:39 Body Mass Index 39.80 (140.61 kg, 187.96 cm) vg1 MDM: 19:47 Patient medically screened. cp 20:00 Differential diagnosis: nephrolithiasis, pyelonephritis, UTI, pancreatitis, cp cholelithiasis, cholecystitis. 23:05 Data reviewed: vital signs, nurses notes, lab test result(s), radiologic studies, CT cp scan, ultrasound, and as a result, I will discharge patient. 23:05 Counseling: I had a detailed discussion with the patient and/or guardian regarding: the cp historical points, exam findings, and any diagnostic results supporting the discharge/admit diagnosis, lab results, radiology results, the need for outpatient follow up, a general surgeon, to return to the emergency department if symptoms worsen or persist or if there are any questions or concerns that arise at home. Response to treatment: VSS. Pain markedly improved. Review of [place] prescription monitor website does not show any results for patient, and as a result, I will discharge patient. 01/11 19:46 Order name: Basic Metabolic Panel 01/11 19:46 Order name: CBC with Diff; Complete Time: 20:16 01/11 20:16 Interpretation: Normal except: DILLON% 38.0; LYM% 47.3. 01/11 19:46 Order name: Hepatic Function; Complete Time: 20:57 01/11 19:46 Order name: Lipase; Complete Time: 20:57 01/11 19:46 Order name: Urine Microscopic Only; Complete Time: 20:57 01/11 19:47 Order name: Basic Metabolic Panel; Complete Time: 20:57 [facility] 01/11 19:46 Order name: IV Saline Lock; Complete Time: 20:06 01/11 19:46 Order name: Labs collected and sent; Complete Time: 20:06 01/11 20:03 Order name: Urine Dipstick-Ancillary; Complete Time: 20:16 [facility] 01/11 20:18 Order name: CT Abd/Pelvis - IV Contrast Only; Complete Time: 20:57 01/11 20:37 Order name: Urine Culture [facility] 01/11 20:58 Order name: US Abdomen Limited: RUQ/gallbladder 01/11 19:46 Order name: Urine Dipstick-Ancillary (obtain specimen); Complete Time: 20:06 Administered Medications: 20:26 Drug: morphine 4 mg Route: IVP; Site: right antecubital; aj1 23:04 Drug: Rocephin (cefTRIAXone) 1 grams Route: IV; Rate: calculated rate; Site: right aj1 antecubital; Disposition: 01/11/21 23:07 Discharged to Home. Impression: Cholelithiasis, Urinary tract infection, site not specified. - Condition is Stable. - Discharge Instructions: Urinary Tract Infection, Adult, Cholelithiasis. - Prescriptions for Tylenol- Codeine #3 300-30 mg Oral Tablet - take 2 tablets by ORAL route every 8-10 hours As needed; 15 tablet. Zofran 4 mg Oral Tablet - take 1 tablet by ORAL route every 12 hours As needed; 20 tablet. Cipro 500 mg Oral Tablet - take 1 tablet by ORAL route every 12 hours for 7 days; 14 tablet. - Medication Reconciliation Form, Thank You Letter, Antibiotic Education, Prescription Opioid Use form. - Follow up: Emiliano Lopez MD; When: 2 - 3 days; Reason: cholelithiasis. - Problem is an ongoing problem. - Symptoms have improved. Addendum: 01/13/2021 02:32 Co-signature as Attending Physician, Renaldo Oquendo MD. m Signatures: Dispatcher [employer] EDIndira Nino RN RN aj1 Oh Franco PA PA cp Irvin Dos Santos, RN RN Cora Cruz RN RN vg1 Renaldo Oquendo MD MD [id number] Corrections: (The following items were deleted from the chart) 01/11 23:28 23:07 01/11/2021 23:07 Discharged to Home. Impression: Cholelithiasis; Urinary tract wh infection, site not specified. Condition is Stable. Forms are Medication Reconciliation Form, Thank You Letter, Antibiotic Education, Prescription Opioid Use. Follow up: Dr. Emiliano Lopez; When: 2 - 3 days; Reason: cholelithiasis. Problem is an ongoing problem. Symptoms have improved. cp
[2021-01-11] MEDS ORDERED: CEFTRIAXONE/SWI 1gm 1 GM/10 ML SYR ONE (23:22)
[2021-01-11 23:36] VITALS: TEMP 98.1; O2SAT 98
[2021-01-11 23:37] VITALS: BP 129/75
--- NOTE | 2021-01-12 08:19 | RAD REPORT ---
EXAM DESCRIPTION: US - Abdomen Exam Limited - 01/11/2021 9:27 pm CLINICAL HISTORY: ABD PAIN Preliminary findings provided at the time of the study. COMPARISON: Abdomen Pelvis W Contrast dated 01/11/2021 FINDINGS: Partially filled gallbladder shows a small 4 mm echogenic focus along the wall of the gall bladder. This could be a nonshadowing stone or polyp. No other stone or sludge findings identifiable. There is no wall thickening or pericholecystic fluid. No common duct stone or biliary tree dilatation identified. IMPRESSION: A 4 millimeter echogenic focus along the wall of the gallbladder could be a polyp or non shadowing adherent stone. Gallbladder and biliary tree are otherwise unremarkable.
== END 2021-01-11 23:28 | disposition home or self-care (01) ==
LOC: ER 19:26
DX: N39.0 Urinary tract infection, site not specified (principal); K80.20 Calculus of gallbladder without cholecystitis without obstruction; F41.9 Anxiety disorder, unspecified; F44.81 Dissociative identity disorder
CPT/HCPCS: 87088; 85025; 87086; 80048; 36415; 80076; 83690; 74177; 76705; 96375; 96374; 99284; Q9967; J0696; 81003; 81015

== ENCOUNTER 2021-01-26 16:03 | Emergency (ER) | payer OTHER ==
--- OUTSIDE RECORDS SUMMARY | 2021-01-26 16:06 | XMS REPORT | Continuity of Care Document ---
:1985 Author Organization [facility] t Address [address] [place] [address] Care Team Providers Name Role Phone Jose Attending Clinician Lona MARVIN Attending Clinician Alexandre Attending Clinician [phone] Payers Payer Name Policy Type Policy Number Effective Date Expiration Date S ource Problems This patient has no known problems. Allergies, Adverse Reactions, Alerts Allergy Allergy Status Severity Reaction(s) Onset Inactive Treating Comm ents Source Name Type Date Date Clinician No Known DA Active U 2017-08 [facility] [address] [place] s 00:00: d 00 [facility] No Known DA Active U [facility] 7- Clear s 00:00: Rajput 00 [facility] Medications This patient has no known medications. Procedures This patient has no known procedures. Encounters Start End Encounter Admission Attending Care Care Encounter Source Date/Time Date/Time Type Type Clinicians Facility Department ID 2020-11-21 2020-11-21 [id number] 11:47:02 14:29:28 Visit [facility] [id number] FAMILY [id number] [facility] [id number] [facility] 2020-10-29 2020-10-29 Telephone [facility] [id number] 00:00:00 00:00:00 [facility] [id number] Clear [id number] [place] [id number] Medical [address] 2018-09-21 2018-09-21 Outpatient Alexandre GAROOCS GAROOCS [id number] 15:40:00 15:40:00 Alexandria [id number] Results Test Description Test Time Test [...] CA) 8.3 mg/dl 8.0-10.5 N CBC W/AUTO [id number] 05:30:00 Test Item Value Reference Range Interpretation [...] K/mm3 0.0-0.2 N DRUGS OF ABUSE SCREEN [id number] 09:39:00 Test Item Value Reference Interpretation Comments [...] on: 300 ng/mL Specimen comments: Clean CatchURINALYSIS [id number] 09:37:00 Test Item Value Reference Range Interpretation [...] FEW NONE BACU) Specimen comments: Clean CatchURINALYSIS [id number] 09:35:00 Test Item Value Reference Range Interpretation [...] Specimen comments: Clean Catch- XR CHEST 1 [id number] 09:35:00 FAX: Peter Noriega MD [phone] [place]: [address]: REG Name: NISA CARVALHO [facility] : 1985 Age/S: 33/M [address] Unit#: [id number] Loc: [place], [place]: [place] [id number] Acct: [id number] Dis Date: Status: REG ER PHONE #: [phone] Exam Date: 09/20/2018935 FAX #: [phone] Reason: Seizure EXAMS: CPT CODE: [id number] XR CHEST 1 V 74826 Chest Radiograph History: Seizure Comparison: July 11, [...] CC: Peter Noriega MD Technologist: ARUNA OLIVARES Trnmsrd Date/Time/By: 09/20/2018 (0935) : By: DeannPMT PAGE 1 Signed Report FAX: Peter Noriega MD [phone] [place]: St: REG Name: NISA CARVALHO [facility] : 1985 Age/S: 33/M [address] [place] Unit #: [id number] Loc: [place], [place]: [place] [id number] Acct: [id number] Dis Date: Status: REG ER PHONE #: [phone] Exam Date: 09/20/2018935 FAX #: [phone] Reason: Seizure EXAMS: CPT CODE: [id number] XR CHEST 1 V 90978 <Continued> Orig Print D/T: S: 09/20/2018 (7009) PAGE 2 Signed Report CBC W/O [id number] 09:32:00 Test Item Value Reference Range Interpretation [...] AP 1V (KUB)2015-10-11 16:41:00 FAX: Anna Coley [phone] [place]: St: JOANA Name: MILADYSELDERN[facility] : 1985 Age/S: 30/M [address] [place] [address] Blvd Unit#: [id number] Loc: [place] [address] Phys: Anna Jamil Acct: [id number] Dis Date: Status: UNK PHONE #: [phone] Exam Date: 10/11/2015 1630 FAX #: [phone] Reason: epigastric pain EXAMS: CPT CODE: [id number] XR ABDOMEN AP 1V (KUB) 40175 PROCEDURE: ABDOMEN SINGLE VIEW INDICATION: Epigastric pain. [...] Sepulveda M.D. CC: Anna SCHWARTZ Technologist: RT eDven(Trevor) Trnscrd Date/Time/By: 10/11/2015 (0519) : By: Shane Orig Print D/T: S: 10/11/2015 (1932) PAGE 1 Signed Report
[2021-01-26 17:41] LABS: Basophils % 1.4 % (0-1.3); Hematocrit 43.2 % (39.6-49.0); Lymphocytes % 32.6 % (15.3-44.8); MPV 9.2 fL (7.6-11.3); RBC Red Blood Cell Count 5.18 M/uL (4.33-5.43)
[2021-01-26] MEDS ORDERED: ONDANSETRON 4 MG/2 ML VIAL ONE (17:56)
[2021-01-26] MEDS ORDERED: NA CHLORIDE 0.9% 1,000 ML ONE (17:56)
[2021-01-26] MEDS ORDERED: FAMOTIDINE 20 MG/2 ML VIAL IV ONE (17:56)
[2021-01-26] MEDS ORDERED: MORPHINE 4 MG/ML SYR ONE (17:56)
[2021-01-26 18:07] LABS: ALT/SGPT 31 U/L (12-78); AST/SGOT 20 U/L (15-37); Albumin 3.9 g/dL (3.4-5.0); Alkaline Phosphatase 67 U/L (45-117); BUN Blood Urea Nitrogen 10 mg/dL (7-18); Bicarbonate 25 mmol/L (21-32); Bilirubin Direct 0.1 mg/dL (0-0.2); Bilirubin Total 0.5 mg/dL (0.2-1.0); Glucose Level 106 mg/dL (74-106); Lipase 82 U/L (73-393); Potassium 3.8 mmol/L (3.5-5.1); Sodium Level 140 mmol/L (136-145)
--- NOTE | 2021-01-26 18:27 | RAD REPORT ---
EXAM DESCRIPTION: CT - Abdomen Pelvis W Contrast - 01/26/2021 6:02 pm CLINICAL HISTORY: ABD PAIN COMPARISON: Abdomen Pelvis W Contrast dated 01/11/2021 TECHNIQUE: Biphasic, helical CT imaging of the abdomen and pelvis was performed following 100 ml non -ionic IV contrast. No oral contrast administered. All CT scans are performed using dose optimization technique as appropriate and may include automated exposure control or mA/KV adjustment according to patient size. FINDINGS: No suspicious findings in the lung bases. The liver, spleen, and pancreas show no suspicious findings. Gallbladder is partially contracted. The re is respiratory motion which limits assessment of any wall thickening or edema. Gallstones can be o ccult on CT imaging. Biliary tree is not dilated. Symmetric renal function is seen with no hydronephrosis or suspicious renal mass. No pyelonephritis o r acute parenchymal process. No bladder abnormalities. No adrenal abnormalities. No dilated bowel loops or bowel wall thickening. Appendix is normal. No free air, free fluid or infla mmatory stranding. No hernia, mass or bulky lymphadenopathy. No suspicious bony findings. IMPRESSION: Contrast enhanced CT abdomen and pelvis showing no acute or emergent finding. Gallstones can be occult on CT imaging and the amount of respiratory motion in the upper abdomen imag es limits accurate gallbladder assessment. Bile ducts are normal size.
--- NOTE | 2021-01-26 18:36 | ER ---
Nurse's Notes [facility] Name: Byron Gutierrez Age: 35 yrs Sex: Male : 1985 Arrival Date: 01/26/2021 Time: 16:05 Bed 15 Private MD: Diagnosis: Abdominal tenderness;Vomiting;Obesity, unspecified;Functional dyspepsia Presentation: 01/26 16:14 Chief complaint: Patient states: RUQ abd with N/V/D since midnight. Needs his ll1 gallbladder removed, needs a surgeon that will take his insurance. Coronavirus screen: Client denies travel out of the [place] in the last 14 days. At this time, the client does not indicate any symptoms associated with coronavirus-19. Ebola Screen: Patient denies travel to an Ebola-affected area in the 21 days before illness onset. Initial Sepsis Screen: Does the patient meet any 2 criteria? No. Patient's initial sepsis screen is negative. Does the patient have a suspected source of infection? Yes: Acute abdominal pain. Risk Assessment: Do you want to hurt yourself or someone else? Patient reports no desire to harm self or others. Onset of symptoms was January 25, 2021. 16:14 Method Of Arrival: EMS: [facility] ll1 16:14 Acuity: KYLEIGH 3 ll1 Historical: - Allergies: 16:17 No Known Allergies; ll1 - PMHx: 16:17 Anxiety; Dissociative Identity Disorder; Seizures; ll1 - PSHx: 16:17 ear drum SX's; R foot SX; ll1 - Immunization history:: Flu vaccine is up to date. - Social history:: Smoking status: Patient denies any tobacco usage or history of. Screenin:00 Abuse screen: Denies threats or abuse. Denies injuries from another. Nutritional ca1 screening: No deficits noted. Tuberculosis screening: No symptoms or risk factors identified. Fall Risk IV access (20 points). Assessment: 17:00 General: Appears in no apparent distress. uncomfortable, Behavior is cooperative, ca1 appropriate for age. Pain: Complains of pain in epigastric area, right upper quadrant and left upper quadrant Pain currently is 7 out of 10 on a pain scale. Pain began 1 day ago. Is intermittent. Neuro: Level of Consciousness is awake, alert, obeys commands, Oriented to person, place, time, situation. Cardiovascular: Heart tones S1 S2 present Capillary refill < 3 seconds Patient's skin is warm and dry. Respiratory: Airway is patent Respiratory effort is even, unlabored, Respiratory pattern is regular, symmetrical, Breath sounds are clear bilaterally. GI: Abdomen is round non-distended, Bowel sounds present X 4 quads. Abd is soft X 4 quads Abdomen is tender to palpation in epigastric area, right upper quadrant and left upper quadrant Reports nausea, vomiting. : No signs and/or symptoms were reported regarding the genitourinary system. EENT: No signs and/or symptoms were reported regarding the EENT system. Derm: Skin is intact, is healthy with good turgor, Skin is pink, warm \T\ dry. Musculoskeletal: Circulation, motion, and sensation intact. Capillary refill < 3 seconds. 18:00 Reassessment: Patient appears in no apparent distress at this time. Patient and/or ca1 family updated on plan of care and expected duration. Pain level reassessed. Patient is alert, oriented x 3, equal unlabored respirations, skin warm/dry/pink. 18:00 Reassessment: Patient appears in no apparent distress at this time. Patient is alert, ca1 oriented x 3, equal unlabored respirations, skin warm/dry/pink. Patient states feeling better. Vital Signs: 16:14 Pulse 88; Resp 18; Temp 97.1; Pulse Ox 96% ; Weight 140.61 kg; Height 6 ft. 2 in. ll1 (187.96 cm); Pain 7/10; 16:17 BP 151 / 80; ll1 17:00 BP 141 / 77; Pulse 78; Resp 18 S; Pulse Ox 100% on R/A; ca1 18:00 BP 131 / 71; Pulse 78; Resp 18 S; Pulse Ox 100% on R/A; ca1 18:53 BP 128 / 65; Pulse 81; Resp 16 S; Pulse Ox 100% on R/A; ca1 16:14 Body Mass Index 39.80 (140.61 kg, 187.96 cm) ll1 ED Course: 16:05 Patient arrived in ED. am2 16:16 Triage completed. ll1 16:17 Arm band placed on. ll1 16:49 Patient placed in an exam room, on a stretcher. ll1 16:50 Rubia Gallegos RN is Primary Nurse. ca1 16:51 Oh Harrell MD is Attending Physician. wolf 17:00 Patient has correct armband on for positive identification. Bed in low position. Call ca1 light in reach. Side rails up X 1. Pulse ox on. NIBP on. Warm blanket given. 17:30 Initial lab(s) drawn, by me, sent to lab. Inserted saline lock: 20 gauge in right ca1 antecubital area, using aseptic technique. Blood collected. 18:02 CT Abd/Pelvis - IV Contrast Only In Process Unspecified. EDMS 18:36 Felipe Perez MD is Referral Physician. [facility] 18:36 Jared Marcano MD is Referral Physician. wolf 18:55 No provider procedures requiring assistance completed. IV discontinued, intact, ca1 bleeding controlled, No redness/swelling at site. Pressure dressing applied. Administered Medications: 17:32 Drug: NS 0.9% 1000 ml Route: IV; Rate: 1 bolus; Site: right antecubital; ca1 18:30 Follow up: IV Status: Completed infusion; IV Intake: 1000ml ca1 17:33 Drug: Pepcid (famotidine) 20 mg Route: IVP; Site: right antecubital; ca1 18:54 Follow up: Response: No adverse reaction ca1 17:35 Drug: Zofran (Ondansetron) 4 mg Route: IVP; Site: right antecubital; ca1 18:54 Follow up: Response: No adverse reaction; Nausea is decreased; Vomiting decreased ca1 17:37 Drug: morphine 4 mg {Note: rass 0.} Route: IVP; Site: right antecubital; ca1 18:54 Follow up: Response: No adverse reaction; Pain is decreased; RASS: Alert and Calm (0) ca1 Intake: 18:30 IV: 1000ml; Total: 1000ml. ca1 Outcome: 18:36 Discharge ordered by . wolf 18:55 Discharged to home ambulatory, with family. ca1 18:55 Condition: stable 18:55 Discharge instructions given to patient, Instructed on discharge instructions, follow up and referral plans. medication usage, Demonstrated understanding of instructions, follow-up care, medications, Prescriptions given X 3. 18:55 Patient left the ED. ca1 Signatures: Dispatcher [employer]OK Oh Harrell MD MD cha Moreno, Amanda am2 Acob, Rubia, RN RN ca1 Santiago, Lynsay, RN RN ll1
--- NOTE | 2021-01-26 18:36 | EDPHYS ---
Physician Documentation [facility] Name: Byron Gutierrez Age: 35 yrs Sex: Male : 1985 Arrival Date: 01/26/2021 Time: 16:05 Bed 15 Private MD: ED Physician Oh Harrell HPI: 01/26 17:04 This 35 yrs old Male presents to ER via EMS with complaints of Abdominal Pain, wolf Vomiting. 17:04 The patient presents to the emergency department with nausea, vomiting, abdominal pain, wolf of the right upper quadrant and left upper quadrant. Onset: The symptoms/episode began/occurred 2 day(s) ago. Possible causes: unknown. The symptoms are aggravated by movement, pressure, food , The symptoms are alleviated by nothing. Associated signs and symptoms: Pertinent positives: abdominal pain, nausea, vomiting. Severity of symptoms: At their worst the symptoms were moderate in the emergency department the symptoms are unchanged. The patient has experienced similar episodes in the past, several times. Historical: - Allergies: 16:17 No Known Allergies; ll1 - PMHx: 16:17 Anxiety; Dissociative Identity Disorder; Seizures; ll1 - PSHx: 16:17 ear drum SX's; R foot SX; ll1 - Immunization history:: Flu vaccine is up to date. - Social history:: Smoking status: Patient denies any tobacco usage or history of. ROS: 17:07 Constitutional: Negative for fever, chills, and weight loss, Eyes: Negative for injury, wolf pain, redness, and discharge, ENT: Negative for injury, pain, and discharge, Neck: Negative for injury, pain, and swelling, Cardiovascular: Negative for chest pain, palpitations, and edema, Respiratory: Negative for shortness of breath, cough, wheezing, and pleuritic chest pain, Back: Negative for injury and pain, : Negative for injury, bleeding, discharge, and swelling, MS/Extremity: Negative for injury and deformity, Skin: Negative for injury, rash, and discoloration, Neuro: Negative for headache, weakness, numbness, tingling, and seizure, Psych: Negative for depression, anxiety, suicide ideation, homicidal ideation, and hallucinations, Allergy/Immunology: Negative for hives, rash, and allergies, Endocrine: Negative for neck swelling, polydipsia, polyuria, polyphagia, and marked weight changes, Hematologic/Lymphatic: Negative for swollen nodes, abnormal bleeding, and unusual bruising. 17:07 Abdomen/GI: Positive for abdominal pain, nausea, vomiting, of the right upper quadrant and left upper quadrant. Exam: 17:07 Constitutional: This is a well developed, well nourished patient who is awake, alert, wolf and in no acute distress. Head/Face: Normocephalic, atraumatic. Eyes: Pupils equal round and reactive to light, extra-ocular motions intact. Lids and lashes normal. Conjunctiva and sclera are non-icteric and not injected. Cornea within normal limits. Periorbital areas with no swelling, redness, or edema. ENT: Nares patent. No nasal discharge, no septal abnormalities noted. Tympanic membranes are normal and external auditory canals are clear. Oropharynx with no redness, swelling, or masses, exudates, or evidence of obstruction, uvula midline. Mucous membranes moist. Neck: Trachea midline, no thyromegaly or masses palpated, and no cervical lymphadenopathy. Supple, full range of motion without nuchal rigidity, or vertebral point tenderness. No Meningismus. Chest/axilla: Normal chest wall appearance and motion. Nontender with no deformity. No lesions are appreciated. Cardiovascular: Regular rate and rhythm with a normal S1 and S2. No gallops, murmurs, or rubs. Normal PMI, no JVD. No pulse deficits. Respiratory: Lungs have equal breath sounds bilaterally, clear to auscultation and percussion. No rales, rhonchi or wheezes noted. No increased work of breathing, no retractions or nasal flaring. Back: No spinal tenderness. No costovertebral tenderness. Full range of motion. Male : Normal genitalia with no discharge or lesions. Skin: Warm, dry with normal turgor. Normal color with no rashes, no lesions, and no evidence of cellulitis. MS/ Extremity: Pulses equal, no cyanosis. Neurovascular intact. Full, normal range of motion. Neuro: Awake and alert, GCS 15, oriented to person, place, time, and situation. Cranial nerves II-XII grossly intact. Motor strength 5/5 in all extremities. Sensory grossly intact. Cerebellar exam normal. Normal gait. Psych: Awake, alert, with orientation to person, place and time. Behavior, mood, and affect are within normal limits. 17:07 Abdomen/GI: Inspection: distension, Bowel sounds: normal, Palpation: moderate abdominal tenderness, in the epigastric area, right upper quadrant and left upper quadrant, Liver: no appreciated palpable abnormalities, Hernia: not appreciated. 17:07 Musculoskeletal/extremity: DVT Exam: No signs of deep vein thrombosis. no pain, no swelling, no tenderness, negative Homans' sign noted on exam, no appreciated bluish discoloration, no erythema, no increased warmth. Vital Signs: 16:14 Pulse 88; Resp 18; Temp 97.1; Pulse Ox 96% ; Weight 140.61 kg; Height 6 ft. 2 in. ll1 (187.96 cm); Pain 7/10; 16:17 BP 151 / 80; ll1 17:00 BP 141 / 77; Pulse 78; Resp 18 S; Pulse Ox 100% on R/A; ca1 18:00 BP 131 / 71; Pulse 78; Resp 18 S; Pulse Ox 100% on R/A; ca1 18:53 BP 128 / 65; Pulse 81; Resp 16 S; Pulse Ox 100% on R/A; ca1 16:14 Body Mass Index 39.80 (140.61 kg, 187.96 cm) ll1 MDM: 16:51 Patient medically screened. wolf 17:09 Differential diagnosis: Nonspecific abd pain, gastritis, cholecystitis, pancreatitis, wolf appendicitis, diverticulitis, viral gastroenteritis, gastroenteritis. Data reviewed: vital signs, nurses notes, lab test result(s), radiologic studies, CT scan, ultrasound. Data interpreted: Pulse oximetry: on room air is 96 %. Test interpretation: by ED physician or midlevel provider:. Counseling: I had a detailed discussion with the patient and/or guardian regarding: the historical points, exam findings, and any diagnostic results supporting the discharge/admit diagnosis, lab results, radiology results, the need for outpatient follow up. 01/26 17:01 Order name: Basic Metabolic Panel; Complete Time: 18:[address] [facility] 01/26 17:01 Order name: CBC with Diff; Complete Time: 18:[address] [facility] 01/26 17:01 Order name: Hepatic Function; Complete Time: 18:22 wolf 01/26 17:01 Order name: Lipase; Complete Time: 18:[address] [facility] 01/26 18:38 Order name: Urine Dipstick-Ancillary EDMS 01/26 17:01 Order name: IV Saline Lock; Complete Time: 17:[address] [facility] 01/26 17:01 Order name: Labs collected and sent; Complete Time: 17:[address] [facility] 01/26 17:01 Order name: CT Abd/Pelvis - IV Contrast Only; Complete Time: 18:[address] [facility] 01/26 18:55 Order name: SARS-COV-[address] [facility] 01/26 17:01 Order name: Urine Dipstick-Ancillary (obtain specimen); Complete Time: 18:[address] [facility] Administered Medications: 17:32 Drug: NS 0.9% 1000 ml Route: IV; Rate: 1 bolus; Site: right antecubital; ca1 18:30 Follow up: IV Status: Completed infusion; IV Intake: 1000ml ca1 17:33 Drug: Pepcid (famotidine) 20 mg Route: IVP; Site: right antecubital; ca1 18:54 Follow up: Response: No adverse reaction ca1 17:35 Drug: Zofran (Ondansetron) 4 mg Route: IVP; Site: right antecubital; ca1 18:54 Follow up: Response: No adverse reaction; Nausea is decreased; Vomiting decreased ca1 17:37 Drug: morphine 4 mg {Note: rass 0.} Route: IVP; Site: right antecubital; ca1 18:54 Follow up: Response: No adverse reaction; Pain is decreased; RASS: Alert and Calm (0) ca1 Disposition: 01/26/21 18:36 Discharged to Home. Impression: Abdominal tenderness, Vomiting, Obesity, unspecified, Functional dyspepsia. - Condition is Stable. - Discharge Instructions: Abdominal Pain, Adult, Nausea and Vomiting, Adult, Obesity, Adult, Abdominal Pain, Adult, Wghw-ps-Nalt, Obesity, Adult, Hihj-bh-Fxfh. - Prescriptions for Bentyl 20 mg Oral Tablet - take 1 tablet by ORAL route every 6 hours As needed; 20 tablet. Pepcid 20 mg Oral Tablet - take 1 tablet by ORAL route every 12 hours for 10 days; 20 tablet. Zofran 4 mg Oral Tablet - take 1 tablet by ORAL route every 12 hours As needed; 20 tablet. - Medication Reconciliation Form, Thank You Letter, Antibiotic Education, Prescription Opioid Use form. - Follow up: Felipe Perez; When: 2 - 3 days; Reason: Recheck today's complaints, Continuance of care, Re-evaluation by your physician. Follow up: Jared Marcano; When: 2 - 3 days; Reason: Recheck today's complaints, Continuance of care, Re-evaluation by your physician. - Problem is new. - Symptoms have improved. Signatures: Dispatcher [employer] [facility] Oh Harrell MD MD cha Acob, Cheryl RN RN ca1 Gertrudis Henderson RN RN ll1 Corrections: (The following items were deleted from the chart) 17:53 17:04 CORONAVIRUS+MR.LAB.BRZ ordered. [facility] 18:55 18:36 01/26/2021 18:36 Discharged to Home. Impression: Abdominal tenderness; Vomiting; ca1 Obesity, unspecified; Functional dyspepsia. Condition is Stable. Discharge Instructions: Abdominal Pain, Adult, Nausea and Vomiting, Adult, Obesity, Adult, Abdominal Pain, Adult, Uzaj-hn-Zakx, Obesity, Adult, Uksp-sn-Dgbv. Prescriptions for Bentyl 20 mg Oral Tablet - take 1 tablet by ORAL route every 6 hours As needed; 20 tablet, Pepcid 20 mg Oral Tablet - take 1 tablet by ORAL route every 12 hours for 10 days; 20 tablet, Zofran 4 mg Oral Tablet - take 1 tablet by ORAL route every 12 hours As needed; 20 tablet. and Forms are Medication Reconciliation Form, Thank You Letter, Antibiotic Education, Prescription Opioid Use. Follow up: Felipe Perez; When: 2 - 3 days; Reason: Recheck today's complaints, Continuance of care, Re-evaluation by your physician. Follow up: Jared Marcano; When: 2 - 3 days; Reason: Recheck today's complaints, Continuance of care, Re-evaluation by your physician. Problem is new. Symptoms have improved. wolf
[2021-01-26 18:38] LABS: Urine Blood Negative (Negative); Urine Glucose Negative (Negative); Urine Protein 1+ (Negative); Urine Specific Gravity 1.015 (1.005-1.030); Urine pH 8.5 (5.0-7.0)
[2021-01-26 19:00] VITALS: TEMP 97.1
[2021-01-26 19:03] VITALS: O2SAT 100
[2021-01-26 19:07] VITALS: BP 128/65
== END 2021-01-26 18:55 | disposition home or self-care (01) ==
LOC: ER 16:03
DX: K30 Functional dyspepsia (principal); R11.10 Vomiting, unspecified; E66.9 Obesity, unspecified; Z20.822 Contact with and (suspected) exposure to COVID-19
CPT/HCPCS: 85025; 80048; 36415; 82565; 80076; 81003; 83690; 74177; U0003; Q9967; J7030; J2405; 96361; 96374; 96375; 99284

== ENCOUNTER 2021-01-27 18:38 | Emergency (ER) | payer OTHER ==
--- OUTSIDE RECORDS SUMMARY | 2021-01-27 18:40 | XMS REPORT | Continuity of Care Document ---
:[address] [facility] [place], [place] t Address [address] [place] [address] Care Team Providers Name Role Phone Jose Attending Clinician Lona MARVIN Attending Clinician Alexandre Attending Clinician [phone] Payers Payer Name Policy Type Policy Number Effective Date Expiration Date S ource Problems This patient has no known problems. Allergies, Adverse Reactions, Alerts Allergy Allergy Status Severity Reaction(s) Onset Inactive Treating Comm ents Source Name Type Date Date Clinician No Known DA Active U 2017-08 [facility] [address] [place] [facility] 00:00: d 00 [facility] No Known DA Active U [facility] 7- Clear s 00:00: Rajput 00 [facility] Medications This patient has no known medications. Procedures This patient has no known procedures. Encounters Start End Encounter Admission Attending Care Care Encounter Source Date/Time Date/Time Type Type Clinicians Facility Department ID 2020-11-21 2020-11-21 [facility] [id number] 11:47:02 14:29:28 Visit [facility] [id number] FAMILY [id number] [facility] [id number] RICK [facility] CL[facility]IC 2020-10-29 2020-10-29 Telephone [facility] [id number] 00:00:00 [facility]00[facility] [id number] Clear [id number] [place] [id number] Medical [address] 2018-09-21 2018-09-21 Outpatient Alexandre GAROOCS GAROOCS [id number] 15:40:00 15:40:00 Alexandria [id number] Results Test Description Test Time Test [...] CA) 8.3 mg/dl 8.0-10.5 N CBC W/AUTO [id number] 05:30:00 Test Item Value Reference Range Interpretation [...] K/mm3 0.0-0.2 N DRUGS OF ABUSE SCREEN [id number] 09:39:00 Test Item Value Reference Interpretation Comments [...] on: 300 ng/mL Specimen comments: Clean CatchURINALYSIS [id number] 09:37:00 Test Item Value Reference Range Interpretation [...] FEW NONE BACU) Specimen comments: Clean CatchURINALYSIS [id number] 09:35:00 Test Item Value Reference Range Interpretation [...] Specimen comments: Clean Catch- XR CHEST 1 [id number] 09:35:00 FAX: Peter Noriega MD [phone] [place]: [address]: REG Name: NISA CARVALHO [facility] : 1985 Age/S: 33/M [address] Unit#: [id number] Loc: [place], [place]: [place] [id number] Acct: [id number] Dis Date: Status: REG ER PHONE #: [phone] Exam Date: 09/20/2018935 FAX #: [phone] Reason: Seizure EXAMS: CPT CODE: [id number] XR CHEST 1 V 24122 Chest Radiograph History: Seizure Comparison: July 11, [...] CC: Peter Noriega MD Technologist: ARUNA OLIVARES Trnctrd Date/Time/By: 09/20/2018 (0935) : By: DeannPMT PAGE 1 Signed Report FAX: Peter Noriega MD [phone] [place]: St: REG Name: NISA CARVALHO [facility] : 1985 Age/S: 33/M [address] Unit #: [id number] Loc: [place], [place]: [place] [id number] Acct: [id number] Dis Date: Status: REG ER PHONE #: [phone] Exam Date: 09/20/2018935 FAX #: [phone] Reason: Seizure EXAMS: CPT CODE: [id number] XR CHEST 1 V 63004 <Continued> Orig Print D/T: S: 09/20/2018 (9469) PAGE 2 Signed Report CBC W/O [id number] 09:32:00 Test Item Value Reference Range Interpretation [...] AP 1V (KUB)2015-10-11 16:41:00 FAX: Anna Coley [phone] [place]: St: JOANA Name: MILADYSELDERNISA [facility] : 1985 Age/S: 30/M [address] [place] [address] Blvd Unit#: [id number] Loc: [place] [address] Phys: Anna Jamil Acct: [id number] Dis Date: Status: UNK PHONE #: [phone] Exam Date: 10/11/2015 1630 FAX #: [phone] Reason: epigastric pain EXAMS: CPT CODE: [id number] XR ABDOMEN AP 1V (KUB) 05484 PROCEDURE: ABDOMEN SINGLE VIEW INDICATION: Epigastric pain. [...] SCHWARTZ Technologist: RT Deven(Trevor) Trnscrd Date/Time/By: 10/11/2015 (2758) : By: Shane Orig Print D/T: S: 10/11/2015 (7949) PAGE 1 Signed Report
[2021-01-27 20:04] LABS: Absolute Lymphocytes (CBC) 3.4 K/uL (0.7-4.9); Basophils % 1.1 % (0-1.3); Lymphocytes % 31.7 % (15.3-44.8); MPV 9.1 fL (7.6-11.3)
[2021-01-27 20:05] LABS: Urine Blood Trace-intact (Negative); Urine Glucose Negative (Negative); Urine Protein 1+ (Negative); Urine Specific Gravity >=1.030 (1.005-1.030); Urine pH 6.5 (5.0-7.0)
[2021-01-27] MEDS ORDERED: ONDANSETRON 4 MG/2 ML VIAL ONE (20:17)
[2021-01-27] MEDS ORDERED: NA CHLORIDE 0.9% 1,000 ML ONE (20:17)
--- NOTE | 2021-01-27 20:22 | RAD REPORT ---
EXAM DESCRIPTION: CT - Head Brain Wo Cont - 01/27/2021 8:15 pm CLINICAL HISTORY: Alteration of awareness/confusion COMPARISON: November 2020 TECHNIQUE: Computed axial tomography of the head was obtained. IV contrast was not requested. All CT scans are performed using dose optimization technique as appropriate and may include automated exposure control or mA/KV adjustment according to patient size. FINDINGS: An intracranial bleed is not seen . The ventricles are normal in caliber. No extra-axial fluid collection is noted. Fluid within the sinuses/ mastoids is not seen. IMPRESSION: No acute intracranial abnormality is seen. If patient's symptoms persist MRI of the bra in would be recommended.
[2021-01-27 20:25] LABS: Protime INR 1.03
[2021-01-27 20:49] LABS: Barbiturates NEGATIVE (NEGATIVE); Benzodiazepines NEGATIVE (NEGATIVE); Cocaine NEGATIVE (NEGATIVE); METHAMPHETAM NEGATIVE (NEGATIVE); Methadone NEGATIVE (NEGATIVE); Opiates POSITIVE (NEGATIVE); Phencyclidine NEGATIVE (NEGATIVE); THC Cannibis POSITIVE (NEGATIVE)
[2021-01-27 20:50] LABS: ALT/SGPT 33 U/L (12-78); AST/SGOT 25 U/L (15-37); Albumin 3.7 g/dL (3.4-5.0); Alkaline Phosphatase 59 U/L (45-117); BUN Blood Urea Nitrogen 11 mg/dL (7-18); Bicarbonate 25 mmol/L (21-32); Bilirubin Direct 0.1 mg/dL (0-0.2); Bilirubin Total 0.4 mg/dL (0.2-1.0); Glucose Level 88 mg/dL (74-106); Lipase 51 U/L (73-393); Protein, Total 7.9 g/dL (6.4-8.2); Sodium Level 137 mmol/L (136-145)
[2021-01-27 20:53] LABS: Urine Mucus HEAVY /HPF (NONE SEEN)
[2021-01-27 20:54] LABS: Urine Bacteria <20 /HPF (NONE SEEN); Urine RBC <5 /HPF (NONE SEEN)
[2021-01-27] MEDS ORDERED: CEFTRIAXONE/SWI 1gm 1 GM/10 ML SYR ONE (21:19)
--- NOTE | 2021-01-27 23:51 | EDPHYS ---
Physician Documentation [facility] Name: Byron Gutierrez Age: 35 yrs Sex: Male : 1985 Arrival Date: 01/27/2021 Time: 18:49 Bed 2 Private MD: ED Physician Renaldo Oquendo HPI: 01/27 19:52 This 35 yrs old Male presents to ER via EMS with complaints of Confusion. 7 19:53 The patient presents with confusion. Onset: The symptoms/episode began/occurred this mh7 morning, today. Possible causes: unknown. Associated signs and symptoms: Pertinent positives: abdominal pain, confusion, diarrhea, nausea, vomiting, Pertinent negatives: agitation, ataxia, blurred vision, chest pain, combativeness, diaphoresis, dizziness, headache, lightheadedness, numbness, palpitations, seizure, shortness of breath, tingling, vertigo, weakness. Current symptoms: In the emergency department the patient's symptoms have resolved, the patient is alert and fully oriented, has normal speech, has normal responsiveness, has no confusion. Patient's baseline: Neuro: alert and fully oriented, Motor: no deficits, Ambulation: walks without assistance, Speech: normal. Patient states that he has had some confusion today. He states that he was in his kitchen then woke up in his bed but does not remember how he got there. He states that later he was outside walking but does not how he got there. He denies auditory or visual hallucinations. Denies any suicidal or homicidal ideations. Denies any injuries, headache, fever, chest pain, cough, SOB, dizziness, or weakness. he has had some upper abdominal pain, nausea. vomiting, and diarrhea for a few days.. Historical: - Allergies: 18:53 No Known Allergies; tr6 - Home Meds: 18:53 Depakote Oral [Active]; Hydroxyzine Oral [Active]; Seroquel Oral [Active]; tr6 - PMHx: 20:28 Anxiety; Dissociative Identity Disorder; Seizures; rr5 - Immunization history:: Adult Immunizations unknown. - Social history:: Smoking status: unknown. ROS: 19:53 Constitutional: Negative for fever, chills, and weight loss, Eyes: Negative for injury, mh7 pain, redness, and discharge, ENT: Negative for injury, pain, and discharge, Neck: Negative for injury, pain, and swelling, Cardiovascular: Negative for chest pain, palpitations, and edema, Respiratory: Negative for shortness of breath, cough, wheezing, and pleuritic chest pain, Back: Negative for injury and pain, : Negative for injury, bleeding, discharge, and swelling, MS/Extremity: Negative for injury and deformity, Skin: Negative for injury, rash, and discoloration, Neuro: Negative for headache, weakness, numbness, tingling, and seizure, Psych: Negative for depression, anxiety, suicide ideation, homicidal ideation, and hallucinations, Allergy/Immunology: Negative for hives, rash, and allergies, Endocrine: Negative for neck swelling, polydipsia, polyuria, polyphagia, and marked weight changes, Hematologic/Lymphatic: Negative for swollen nodes, abnormal bleeding, and unusual bruising. Exam: 19:53 Constitutional: This is a well developed, well nourished patient who is awake, alert, mh7 and in no acute distress. Head/Face: Normocephalic, atraumatic. Eyes: Pupils equal round and reactive to light, extra-ocular motions intact. Lids and lashes normal. Conjunctiva and sclera are non-icteric and not injected. Cornea within normal limits. Periorbital areas with no swelling, redness, or edema. ENT: Nares patent. No nasal discharge, no septal abnormalities noted. Tympanic membranes are normal and external auditory canals are clear. Oropharynx with no redness, swelling, or masses, exudates, or evidence of obstruction, uvula midline. Mucous membranes moist. Neck: Trachea midline, no thyromegaly or masses palpated, and no cervical lymphadenopathy. Supple, full range of motion without nuchal rigidity, or vertebral point tenderness. No Meningismus. Chest/axilla: Normal chest wall appearance and motion. Nontender with no deformity. No lesions are appreciated. Cardiovascular: Regular rate and rhythm with a normal S1 and S2. No gallops, murmurs, or rubs. Normal PMI, no JVD. No pulse deficits. Respiratory: Lungs have equal breath sounds bilaterally, clear to auscultation and percussion. No rales, rhonchi or wheezes noted. No increased work of breathing, no retractions or nasal flaring. 19:53 Back: No spinal tenderness. No costovertebral tenderness. Full range of motion. Skin: Warm, dry with normal turgor. Normal color with no rashes, no lesions, and no evidence of cellulitis. MS/ Extremity: Pulses equal, no cyanosis. Neurovascular intact. Full, normal range of motion. Neuro: Awake and alert, GCS 15, oriented to person, place, time, and situation. Cranial nerves II-XII grossly intact. Motor strength 5/5 in all extremities. Sensory grossly intact. Cerebellar exam normal. Normal gait. Psych: Awake, alert, with orientation to person, place and time. Behavior, mood, and affect are within normal limits. 19:53 Abdomen/GI: Inspection: obese Bowel sounds: normal, in all quadrants, Palpation: moderate abdominal tenderness, in the right upper quadrant, mass, is not appreciated, rebound tenderness, is not appreciated, voluntary guarding, is not appreciated, involuntary guarding, is not appreciated, no appreciated organomegaly, Rectal exam: the exam is deferred, because of patient request, Indicators: McBurney's point is not tender, Chisholm's sign is negative, Rovsing's sign is negative, Obturator sign is negative, Psoas sign is negative, Liver: no appreciated palpable abnormalities, Hernia: not appreciated. Vital Signs: 18:50 BP 139 / 83; Pulse 78; Temp 98.4(O); Pulse Ox 97% on R/A; Weight 140.61 kg (R); Height kg 6 ft. 2 in. (187.96 cm) (R); Pain 6/10; 20:20 BP 137 / 75; Pulse 75; Resp 19; Pulse Ox 98% ; rr5 21:20 BP 141 / 79; Pulse 80; Resp 17; Pulse Ox 100% ; rr5 22:30 BP 126 / 89; Pulse 76; Resp 18; Pulse Ox 99% ; rr5 23:57 BP 138 / 75; Pulse 70; Resp 16; Pulse Ox 98% ; rr5 18:50 Body Mass Index 39.80 (140.61 kg, 187.96 cm) kg MDM: 23:46 Differential Diagnosis: electrolyte abnormality, alcohol intoxication, hypoglycemia, mh7 intracranial bleed, overdose, seizure, UTI, volume depletion, Substance Abuse, Schizophrenia. Data reviewed: vital signs, nurses notes, old medical records, lab test result(s), CBC, electrolytes, urinalysis, urine drug screen, EKG, radiologic studies, CT scan. Data interpreted: Pulse oximetry: on room air is 98 %. Interpretation: normal. Counseling: I had a detailed discussion with the patient and/or guardian regarding: the historical points, exam findings, and any diagnostic results supporting the discharge/admit diagnosis, lab results, radiology results, the need for outpatient follow up, to return to the emergency department if symptoms worsen or persist or if there are any questions or concerns that arise at home. Response to treatment: the patient's symptoms have resolved after treatment, the patient's blood pressure is in an acceptable range, mental status has returned to baseline, the patient no longer shows bradycardia, the patient is not short of breath, the patient is not tachycardic, the patient's pain is gone, the patient's temperature has normalized. 23:50 Patient medically screened. [facility] 01/27 19:31 Order name: Acetaminophen [facility] 01/27 19:31 Order name: Basic Metabolic Panel [facility] 01/27 19:31 Order name: CBC with Diff; Complete Time: 20:38 [facility] 01/27 19:31 Order name: ETOH Level; Complete Time: 20:38 [facility] 01/27 19:31 Order name: Hepatic Function; Complete Time: 21:24 [facility] 01/27 19:31 Order name: PT-INR; Complete Time: 20:38 [facility] 01/27 19:31 Order name: Ptt, Activated; Complete Time: 20:38 [facility] 01/27 19:31 Order name: Salicylate; Complete Time: 20:49 [facility] 01/27 19:31 Order name: Urine Drug Screen; Complete Time: 21:24 [facility] 01/27 19:31 Order name: Lipase; Complete Time: 21:24 [facility] 01/27 19:31 Order name: Acetaminophen Level; Complete Time: 21:24 [facility] 01/27 19:31 Order name: Basic Metabolic Panel; Complete Time: 21:24 [facility] 01/27 20:04 Order name: Urine Microscopic Only; Complete Time: 21:24 [facility] 01/27 20:04 Order name: Urine Dipstick-Ancillary; Complete Time: 20:38 [facility] 01/27 19:31 Order name: EKG; Complete Time: 19:31 [facility] 01/27 19:31 Order name: EKG - Nurse/Tech; Complete Time: 19:53 [facility] 01/27 19:31 Order name: IV Saline Lock; Complete Time: 19:54 [facility] 01/27 19:31 Order name: Labs collected and sent; Complete Time: 19:54 [facility] 01/27 19:31 Order name: Urine Dipstick-Ancillary (obtain specimen); Complete Time: 20:28 [facility] 01/27 19:31 Order name: CT Head Brain wo Cont; Complete Time: 20:38 [facility] 01/27 20:39 Order name: Urine Culture [facility] 01/27 21:27 Order name: CT Stone Protocol [facility] Administered Medications: 20:00 Drug: NS 0.9% 1000 ml Route: IV; Rate: 1000 ml; Site: right antecubital; rr5 21:00 Follow up: Response: No adverse reaction; IV Status: Completed infusion; IV Intake: rr5 1000ml 20:00 Drug: Zofran (Ondansetron) 4 mg Route: IVP; Site: right antecubital; rr5 21:00 Follow up: Response: No adverse reaction rr5 21:05 Drug: Rocephin (cefTRIAXone) 1 grams Route: IV; Rate: per protocol; Site: right rr5 antecubital; 21:39 Follow up: Response: No adverse reaction; IV Status: Completed infusion; IV Intake: [id number] Disposition: 01/27/21 23:50 Discharged to Home. Impression: Schizophrenia, unspecified, UTI/ Urinary tract infection, site not specified. - Condition is Stable. - Discharge Instructions: Schizophrenia, Urinary Tract Infection, Adult, [id number]. - Prescriptions for Pyridium 200 mg Oral Tablet - take 1 tablet by ORAL route every 8 hours for 2 days; 6 tablet. Bactrim DS 800- 160 mg Oral Tablet - take 1 tablet by ORAL route every 12 hours for 7 days; 14 tablet. - Medication Reconciliation Form, Thank You Letter, Antibiotic Education, Prescription Opioid Use form. - Follow up: Private Physician; When: 1 - 2 days; Reason: Worsening of condition, Recheck today's complaints, Continuance of care, Re-evaluation by your physician. Follow up: Wilfredo Lassiter MD; When: 1 - 2 days; Reason: Worsening of condition, Recheck today's complaints, Continuance of care, Re-evaluation by your physician. - Problem is an acute exacerbation. - Symptoms have improved. Signatures: Dispatcher [employer] EDMendel Hilton RN RN rr5 Renalod Oquendo MD MD 7 Keyanna Tadeo RN RN tr6 Corrections: (The following items were deleted from the chart) 19:54 19:31 Suicide Screening ([place]) ordered. [facility] rr5 23:59 23:50 01/27/2021 23:50 Discharged to Home. Impression: Schizophrenia, unspecified; rr5 Urinary tract infection, site not specified. Condition is Stable. Forms are Medication Reconciliation Form, Thank You Letter, Antibiotic Education, Prescription Opioid Use. Follow up: Private Physician; When: 1 - 2 days; Reason: Worsening of condition, Recheck today's complaints, Continuance of care, Re-evaluation by your physician. Follow up: Wilfredo Lassiter; When: 1 - 2 days; Reason: Worsening of condition, Recheck today's complaints, Continuance of care, Re-evaluation by your physician. Problem is an acute exacerbation. Symptoms have improved. [facility]
--- NOTE | 2021-01-27 23:51 | ER ---
Nurse's Notes [facility] Name: Byron Gutierrez Age: 35 yrs Sex: Male : 1985 Arrival Date: 01/27/2021 Time: 18:49 Bed 2 Private MD: Diagnosis: Schizophrenia, unspecified;UTI/ Urinary tract infection, site not specified Presentation: 01/27 18:50 Chief complaint: EMS states: AMS. per EMS pt has been confused about where he has been tr6 and people have been showing him pictures of himself of things that he has been doing, but does not remember. pt c/o upper abdominal pain. pt states that his schizophrenia is messing with him and would like to get checked out. Coronavirus screen: At this time, unable to obtain information related to travel outside the [place] Ebola Screen: No symptoms or risks identified at this time. 18:50 Method Of Arrival: EMS: [facility] tr6 18:50 Acuity: KYLEIGH 3 tr6 Historical: - Allergies: 18:53 No Known Allergies; tr6 - Home Meds: 18:53 Depakote Oral [Active]; Hydroxyzine Oral [Active]; Seroquel Oral [Active]; tr6 - PMHx: 20:28 Anxiety; Dissociative Identity Disorder; Seizures; rr5 - Immunization history:: Adult Immunizations unknown. - Social history:: Smoking status: unknown. Screenin:53 Abuse screen: Denies threats or abuse. Denies injuries from another. Nutritional tr6 screening: No deficits noted. Tuberculosis screening: No symptoms or risk factors identified. Fall Risk None identified. Assessment: 19:07 General: Appears in no apparent distress. Behavior is calm, cooperative, appropriate kg for age, quiet. Pain: Complains of pain in right upper quadrant. Neuro: Level of Consciousness is awake, alert, obeys commands, Oriented to person, place, time, situation, Appropriate for age Reports Pt stated, "I've been kind of in and out of consciousness, my schizophrenia is messing with me.". Cardiovascular: No deficits noted. Heart tones S1 S2. Respiratory: No deficits noted. Airway is patent Trachea midline Respiratory effort is even, unlabored, relaxed, Respiratory pattern is regular, Breath sounds are clear bilaterally. GI: Abdomen is obese, Bowel sounds present X 4 quads. : No deficits noted. EENT: No deficits noted. Derm: No deficits noted. 20:19 Reassessment: Carey Montesinos- [phone]. jm8 20:30 Reassessment: Patient appears in no apparent distress at this time. Patient is alert, rr5 oriented x 3, equal unlabored respirations, skin warm/dry/pink. 21:30 Reassessment: Patient appears in no apparent distress at this time. Patient is alert, rr5 oriented x 3, equal unlabored respirations, skin warm/dry/pink. 22:30 Reassessment: Patient appears in no apparent distress at this time. Patient is alert, rr5 oriented x 3, equal unlabored respirations, skin warm/dry/pink. no complaints made awaiting for CT result. 23:58 Reassessment: Patient appears in no apparent distress at this time. Patient is alert, rr5 oriented x 3, equal unlabored respirations, skin warm/dry/pink. discharge instruction given and explained without complaint made Patient states symptoms have improved. Vital Signs: 18:50 BP 139 / 83; Pulse 78; Temp 98.4(O); Pulse Ox 97% on R/A; Weight 140.61 kg (R); Height kg 6 ft. 2 in. (187.96 cm) (R); Pain 6/10; 20:20 BP 137 / 75; Pulse 75; Resp 19; Pulse Ox 98% ; rr5 21:20 BP 141 / 79; Pulse 80; Resp 17; Pulse Ox 100% ; rr5 22:30 BP 126 / 89; Pulse 76; Resp 18; Pulse Ox 99% ; rr5 23:57 BP 138 / 75; Pulse 70; Resp 16; Pulse Ox 98% ; rr5 18:50 Body Mass Index 39.80 (140.61 kg, 187.96 cm) kg ED Course: 18:49 Patient arrived in ED. iw 18:49 Yaneth Gonzalez, RN is Primary Nurse. kg 18:51 Triage completed. tr6 18:53 Patient has correct armband on for positive identification. Placed in gown. Bed in low tr6 position. Call light in reach. Side rails up X 1. fish trapper on. Pulse ox on. NIBP on. Door closed. Noise minimized. Visitors limited. Lights dimmed. 19:01 Renaldo Oquendo MD is Attending Physician. 7 19:12 No provider procedures requiring assistance completed. kg 19:36 Primary Nurse role handed off by Yaneth Gonzalez RN mw2 19:40 Mendel Kraft, RN is Primary Nurse. rr5 19:55 EKG done, by ED staff, reviewed by Renaldo Oquendo MD. rr5 20:00 Inserted saline lock: 20 gauge in right antecubital area, using aseptic technique. rr5 Blood collected. 20:15 CT Head Brain wo Cont In Process Unspecified. EDMS 22:31 CT Stone Protocol In Process Unspecified. EDMS 23:49 Wilfredo Lassiter MD is Referral Physician. mh7 Administered Medications: 20:00 Drug: NS 0.9% 1000 ml Route: IV; Rate: 1000 ml; Site: right antecubital; rr5 21:00 Follow up: Response: No adverse reaction; IV Status: Completed infusion; IV Intake: rr5 1000ml 20:00 Drug: Zofran (Ondansetron) 4 mg Route: IVP; Site: right antecubital; rr5 21:00 Follow up: Response: No adverse reaction rr5 21:05 Drug: Rocephin (cefTRIAXone) 1 grams Route: IV; Rate: per protocol; Site: right rr5 antecubital; 21:39 Follow up: Response: No adverse reaction; IV Status: Completed infusion; IV Intake: 97qmno8 Intake: 21:00 IV: 1000ml; Total: 1000ml. rr5 21:39 IV: 10ml; Total: 1010ml. rr5 Outcome: 23:[address] [facility] 23:59 Patient left the ED. rr5 Signatures: Dispatcher [employer] EDMS Anjelica Clemente RN PAM Frederic Ashton mw2 Mendel Kraft, RN RN rr5 Renaldo Oquendo MD MD 7 Zac Hill RN PAM 8 Keyanna Tadeo RN RN tr6 Yaneth Gonzalez, PAM OROZCO kg Corrections: (The following items were deleted from the chart) 18:55 18:50 Chief complaint: EMS states: AMS. per EMS pt has been confused about where he has tr6 been and people have been showing him pictures of himself of things that he has been doing, but does not remember tr6
[2021-01-28 00:40] VITALS: TEMP 98.4
[2021-01-28 00:46] VITALS: BP 138/75; O2SAT 98
--- NOTE | 2021-01-28 13:34 | RAD REPORT ---
EXAM DESCRIPTION: CT Stone Protocol CLINICAL HISTORY: 35 years Male HEMATURIA TECHNIQUE: Contiguous axial images obtained through the abdomen and pelvis without IV contrast. Richard nal and sagittal reformatted images provided. This CT exam was performed according to our departmental dose-optimization program, which includes on e or more of the following dose reduction techniques: automated exposure control, adjustment of the m A and/or kV according to patient size, and/or use of iterative reconstruction technique. COMPARISON: Prior day's contrast-enhanced CT scan. FINDINGS: There are no renal, ureteral, or bladder calculi. There is no hydronephrosis or perinephri c stranding on either side. The appendix is normal. There is no bowel inflammation, obstruction, free intraperitoneal air, or asc ites. The unenhanced liver, biliary tree, gallbladder, pancreas, spleen, adrenal glands, kidneys, urinary b ladder, and osseous structures demonstrate no acute findings. IMPRESSION: No urolithiasis or appendicitis. No acute abdominal or pelvic findings. Electronically signed by: Irish Bejarano MD 01/27/2021 10:55 PM CDT Due to temporary technical issues with the PACS/Fluency reporting system, reports are being signed by the in house radiologist without review as a courtesy to ensure prompt reporting. The interpreting r adiologist is fully responsible for the content of the report.
--- NOTE | 2021-01-28 15:49 | EKG ---
Test Date: 2021-01-27 Test Time: 19:47:05 Cut Out Marker: RR MEASUREMENT RESULTS: Intervals: Rate: 71 WY: 156 QRSD: 104 QT: 396 QTc: 430 [place]: P: 34 W[place]: 156 QRS: 43 T: 39 INTERPRETIVE STATEMENTS: Normal sinus rhythm Normal ECG Compared to ECG 11/24/2020 15:33:08 No significant changes Electronically Signed On 01-28-21 15:47:07 CDT by Jacky Packer
== END 2021-01-27 23:59 | disposition home or self-care (01) ==
LOC: ER 18:38
DX: N39.0 Urinary tract infection, site not specified (principal); F20.9 Schizophrenia, unspecified
CPT/HCPCS: 96365; 96361; 93005; 87088; 85025; 87086; 80048; 36415; 80320; 80329 ×2; 85610; 80076; 85730; 83690; 80307; 70450; 76377; 74176; 96375; 99285; J0696; J7030; J2405; 81003; 81015

== ENCOUNTER 2021-07-23 15:19 | Emergency (ER) | payer OTHER ==
--- OUTSIDE RECORDS SUMMARY | 2021-07-23 15:22 | XMS REPORT | Continuity of Care Document ---
:[address] [facility] t Address [address] [place] [address] Care Team Providers Name Role Phone Jose WREN Primary Care Physician Jose WREN Attending Clinician Prabhu MARVIN Attending Clinician Lona MARVIN Attending Clinician Alexandre Attending Clinician [phone] Physician, Primary or Family Admitting Clinician Unavailabl e Payers Payer Name Policy Type Policy Number Effective Date Expiration Date S ource Problems Condition Condition Condition Status Onset Resolution Last Treating Co mments Source Name Details Category Date Date Treatment Clinician Date Bipolar Bipolar Disease Active Univers affective affective 7 [place] episode episode Branch depressed, depressed, current current episode episode severity severity unspecifie unspecifie d d Sleep Sleep Disease Active 2019- Univers disorder disorder 02-09 ity of 00:00: [address] Seizure Seizure Disease Active 2019- Univers disorder disorder 02-05 ity of 00:00: [address] 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 01-31 ity of 00:00: [address] Seizures Seizures Disease Active Unive rs 01-31 ity of 00:: [address] Obesity Obesity Disease Active 2019- Univers (BMI (BMI 01-31 ity of 30-39.9) 30-39.9) 00:00: [address] Allergies, Adverse Reactions, Alerts Allergy Allergy Status Severity Reaction(s) Onset Inactive Treating Comm ents Source Name Type Date Date Clinician No Known DA Active U 2017-08 [facility] Allergie 2-08 [place] [facility] 00:00: d 00 [facility] No Known DA Active U [facility] Allergie 7 Clear s 00:00: Rajput [address] [place] [address] Social History Social Habit Start Date Stop Date Quantity Comments Source Exposure to Not sure [facility]-CoV-2 [facility] (event) Branch Alcohol intake 2021-05-31 2021-05-31 Current University of 00:00:00 00:00:00 non-drinker of [facility] alcohol Branch (finding) Tobacco Comment 2018-10-15 2018-10-15 people smoke Univers ity of 00:00:00 00:00:00 outside [facility] Tobacco use and 2016-07-03 2016-07-03 Never used Universit y of exposure 00:00:00 00:00:00 [facility] Sex Ass[birth year] At [birth year] Universit y of 00:00:00 00:00:00 [facility] Smoking Status Start Date Stop Date Source Never smoker [facility] Medications Ordered Filled Start Stop Current Ordering Indication Dosage Frequency Signature Comments Components Source Medication Medication Date Date Medication? Clinician (SIG) Name Name SYBIL 2020-08 Yes [id number] TAKE 1 Univers ROL, 2-07 CAPSULE BY ity of VITAMIN D2, 00:00: MOUTH [place] 1,250 mcg 00 WEEKLY Medical (50,000 Branch unit) capsule ERGOCALCIFE 2020-08 Yes [id number] TAKE 1 Univers ROL, 2-07 CAPSULE BY ity of VITAMIN D2, 00:00: MOUTH [place] 1,250 mcg 00 WEEKLY Medical (50,000 Branch unit) capsule busPIRone 2020-08 Yes [id number] 10mg Take 1 U nivers 10 mg 2-07 tablet by ity of tablet 00:00: mouth 3 [place] 00 (three) Medical times Branch daily. prazosin 2 2020-08 Yes [id number] 4mg Take 2 Univers mg capsule 1-23 capsules ity o f 00:00: by mouth [place] 00 at Medical bedtime. Branch prazosin 2 2020-08 Yes [id number] 4mg Take 2 Univers mg capsule 1-23 capsules ity o f 00:00: by mouth [place] 00 at Medical bedtime. Branch divalproex 2020-08 Yes [id number] 750mg Take 3 Univers ER 250 mg 1-22 tablets by ity of 24 hr 00:00: mouth 2 [place] tablet 00 (two) Medical times Branch daily. divalproex 2020-08 Yes [id number] 750mg Take 3 Univers ER 250 mg 1-22 tablets by ity of 24 hr 00:00: mouth 2 [place] tablet 00 (two) Medical times Branch daily. QUEtiapine 2020-08 Yes [id number] 300mg Take 1 Univers 300 mg 1-18 tablet by ity of tablet 00:00: mouth 2 00 (two) Medical times Branch daily. QUEtiapine 2020-08 Yes [id number] 300mg Take 1 Univers 300 mg 1-18 tablet by ity of tablet 00:00: mouth 2 [place] 00 (two) Medical times Branch daily. QUEtiapine 2020-08 Yes [id number] 300mg Take 1 Univers 300 mg 1-18 tablet by ity of tablet 00:00: mouth 2 [place] 00 (two) Medical times Branch daily. traMADoL 50 2020-08 Yes [id number] 50mg Take 1 Univ ers mg tablet 0-24 tablet by ity o f 00:00: mouth [place] 00 every 8 Medical (eight) Branch hours as needed for Pain (scale 4-6) for up to 15 doses. Indication s: acute pain traMADoL 50 2020-08 Yes [id number] 50mg Take 1 Univ ers mg tablet 0-24 tablet by ity o f 00:00: mouth [place] 00 every 8 Medical (eight) Branch hours as needed for Pain (scale 4-6) for up to 15 doses. Indication s: acute pain traMADoL 50 2020-08 Yes [id number] 50mg Take 1 Univ ers mg tablet 0-24 tablet by ity o f 00:00: mouth [place] 00 every 8 Medical (eight) Branch hours as needed for Pain (scale 4-6) for up to 15 doses. Indication s: acute pain DIVALPROEX 2020-08- No [id number] TAKE 3 Univers ER 250 mg 0-13 11-22 TABLETS BY ity of 24 hr 00:00: 00:00 MOUTH [place] tablet 00 :00 TWICE Medical DAILY Branch QUEtiapine 2020- No [id number] 300mg Take 1 Univers 300 mg 9-28 11-18 tablet by ity of tablet 00:00: 00:00 mouth 2 [place] 00 :00 (two) Medical times Branch daily. ergocalcife Yes [id number] 93444F Take 1 Univers rol, 9-21 capsule by ity of vitamin d2, 00:00: mouth [place] (DRISDOL) 00 weekly. Medical 1,250 mcg Branch (50,000 unit) capsule ergocalcife 2020- No [id number] 46932Q Take 1 Univers rol, 9-21 12-07 capsule by ity of vitamin d2, 00:00: 00:00 [place] (DRISDOL) 00 :00 weekly. Medical 1,250 mcg Branch (50,000 unit) capsule prazosin 2 2020- No [id number] 4mg Take 2 Univers mg capsule 9-15 11-23 capsules ity of 00:00: 00:00 by mouth [place] 00 :00 at Medical bedtime. Branch busPIRone Yes [id number] 10mg Take 1 U nivers 10 mg 8-17 tablet by ity of tablet 00:00: mouth 3 [place] 00 (three) Medical times Branch daily. busPIRone Yes [id number] 10mg Take 1 U nivers 10 mg 8-17 tablet by ity of tablet 00:00: mouth 3 [place] 00 (three) Medical times Branch daily. busPIRone 2020- No [id number] 10mg Take 1 Univers 10 mg 8-17 12-07 tablet by ity of tablet 00:00: 00:00 mouth 3 [place] 00 :00 (three) Medical times Branch daily. Procedures This patient has no known procedures. Encounters Start End Encounter Admission Attending Care Care Encounter Source Date/Time Date/Time Type Type Clinicians Facility Department ID 2019-12-13 Inpatient [facility] ALBA [id number] [facility] 04:42:00 [id number] [facility] 2021-07-09 2021-07-09 Refill [facility] [place] [id number] Univers 00:00:00 00:00:00 [facility] [id number] it y of [place] 4.2.7.2.686 [place] [phone] Med ica RICK [address] [place] [address] 2021-07-08 2021-07-08 Refill [facility] [id number] Univers 00:00:00 00:00:00 , HEALTH 350.1.13.10 it y of [place] FAMILY 4.2.7.2.686 [place] ex MEDICINE [id number] Med ical RICK [address] [place] [address] 2021-06-19 2021-06-19 Refill [facility] [place] [id number] Univers 00:00:00 00:00:00 [facility] [id number] it [place] 4[place].2.686 [place] [phone] Med ical RICK [address] [place] [address] 2020-11-21 2020-11-21 Office [facility] [place] [id number] 11:47:02 14:29:28 Visit [facility] [id number] FAMILY 4.2.7.2.686 MEDICINE [id number] 2020-10-29 2020-10-29 Telephone [facility] [id number] 00:00:00 00:00:00 [facility] [id number] Clear 4.2.7.2.686 [place] [id number] Medical [address] 2018-09-21 2018-09-21 [id number] 15:40:00 15:40:00 [place] [id number] Results Test Description Test Time Test [...] CA) 8.3 mg/dl 8.0-10.5 N CBC W/AUTO [id number] 05:30:00 Test Item Value Reference Range Interpretation [...] K/mm3 0.0-0.2 N DRUGS OF ABUSE SCREEN [id number] 09:39:00 Test Item Value Reference Interpretation Comments [...] on: 300 ng/mL Specimen comments: Clean CatchURINALYSIS [id number] 09:37:00 Test Item Value Reference Range Interpretation [...] FEW NONE BACU) Specimen comments: Clean CatchURINALYSIS [id number] 09:35:00 Test Item Value Reference Range Interpretation [...] Specimen comments: Clean Catch- XR CHEST 1 [id number] 09:35:00 FAX: Peter Noriega MD [phone] [place]: St: REG Name: NISA CARVALHO [facility] : 1985 Age/S: 33/M [address] [facility] Unit#: [id number] [place]: [place]: [place] [id number] Acct: [id number] Dis Date: Status: REG ER PHONE #: [phone] Exam Date: 09/20/2018 0936 FAX #: [phone] Reason: Seizure EXAMS: CPT CODE: [id number] XR CHEST 1 V 96054 Chest Radiograph History: Seizure Comparison: July 11, [...] CC: Peter Noriega MD Technologist: [facility] Date/Time/By: 09/20/2018 (9994) : [facility]: [facility] PAGE 1 Signed Report FAX: Peter Noriega MD [phone] [place]: St: REG Name: NISA CARVALHO [facility] : 1985 Age/S: 33/M [address] [facility] Unit #: [id number] Loc: [place], [place]: [place] [id number] Acct: [id number] Dis Date: Status: REG ER PHONE #: [phone] Exam Date: 09/20/2018 0936 FAX #: [phone] Reason: Seizure EXAMS: CPT CODE: [id number] XR CHEST 1 V 88435 <Continued> Orig Print D/T: S: 09/20/2018 (6410) PAGE 2 Signed Report CBC W/O [id number] 09:32:00 Test Item Value Reference Range Interpretation [...] AP 1V (KUB)2015-10-11 16:41:00 FAX: Anna Coley [phone] [place]: St: K Name: NISA CARVALHO [facility] : 1985 Age/S: 30/M [address] [place] [address] Unit#: [id number] Loc: [place] [address] Phys: Anna Jamil Acct: [id number] Dis Date: Status: UNK PHONE #: [phone] Exam Date: 10/11/2015 1630 FAX #: [phone] Reason: epigastric pain EXAMS: CPT CODE: [id number] XR ABDOMEN AP 1V (KUB) 31612 PROCEDURE: ABDOMEN SINGLE VIEW INDICATION: Epigastric pain. [...] M.D. CC: Anna SCHWARTZ Technologist: RT Deven(Trevor) Trndania Date/Time/By: 10/11/2015 (3241) : By: Shane Orig Print D/T: S: 10/11/2015 (4012) PAGE 1 Signed Report
[2021-07-23] MEDS ORDERED: ONDANSETRON 4 MG/2 ML VIAL ONE (15:49)
[2021-07-23] MEDS ORDERED: MORPHINE 4 MG/ML SYR ONE (15:49)
[2021-07-23 15:54] LABS: Absolute Lymphocytes (CBC) 2.4 K/uL (0.7-4.9); Basophils % 0.9 % (0-1.3); Hematocrit 43.5 % (39.6-49.0); Lymphocytes % 30.9 % (15.3-44.8); MPV 9.5 fL (7.6-11.3); RBC Red Blood Cell Count 5.02 M/uL (4.33-5.43)
[2021-07-23 15:55] LABS: Protime INR 1.02
[2021-07-23 16:17] LABS: ALT/SGPT 82 U/L (12-78); AST/SGOT 81 U/L (15-37); Albumin 3.3 g/dL (3.4-5.0); Alkaline Phosphatase 74 U/L (45-117); BUN Blood Urea Nitrogen 9 mg/dL (7-18); Bicarbonate 24 mmol/L (21-32); Bilirubin Direct 0.2 mg/dL (0-0.2); Bilirubin Total 0.5 mg/dL (0.2-1.0); Glucose Level 90 mg/dL (74-106); Lipase 59 U/L (73-393); Magnesium 1.8 mg/dL (1.8-2.4); NT PRO-BNP 12 pg/mL (<125); Potassium 3.7 mmol/L (3.5-5.1); Protein, Total 7.9 g/dL (6.4-8.2); Sodium Level 139 mmol/L (136-145); Troponin (Emerg Dept Use Only) < 0.02 ng/mL (0.0-0.045)
[2021-07-23 16:22] LABS: Urine Blood Negative (Negative); Urine Glucose Negative (Negative); Urine Protein 1+ (Negative); Urine Specific Gravity 1.025 (1.005-1.030); Urine pH 6.5 (5.0-7.0)
--- NOTE | 2021-07-23 16:35 | RAD REPORT ---
EXAM DESCRIPTION: RAD - Chest Single View - 07/23/2021 4:18 pm CLINICAL HISTORY: syncope COMPARISON: CHEST PA AND LAT 2 VIEW dated 07/12/2009 FINDINGS: Lines: None. Lungs: No evidence of edema or pneumonia. Pleural: No significant pleural effusions or pneumothorax. Cardiac: The heart size is within normal limits. Bones: No acute fractures. Other: IMPRESSION: No acute cardiopulmonary disease.
--- NOTE | 2021-07-23 17:01 | RAD REPORT ---
EXAM DESCRIPTION: CT - Head Brain Wo Cont - 07/23/2021 4:41 pm CLINICAL HISTORY: SYNCOPE COMPARISON: Head Brain Wo Cont dated 01/27/2021; Head Brain Wo Cont dated 11/10/2020 TECHNIQUE: All CT scans are performed using dose optimization technique as appropriate and may inclu de automated exposure control or mA/KV adjustment according to patient size. FINDINGS: No intracranial hemorrhage, hydrocephalus or extra-axial fluid collection.No areas of brai n edema or evidence of midline shift. Trace right mastoid fluid The calvarium is intact. IMPRESSION: No acute intracranial abnormality.
--- NOTE | 2021-07-23 17:01 | RAD REPORT ---
EXAM DESCRIPTION: CTAbdomen Pelvis W Contrast - 07/23/2021 4:44 pm CLINICAL HISTORY: abdominal pain, diarrhea COMPARISON: Abdomen Pelvis W Contrast dated 01/26/2021; Abdomen Pelvis W Contrast dated 01/11/2021 TECHNIQUE: CT of the abdomen and pelvis was performed. All CT scans are performed using dose optimization technique as appropriate and may include automated exposure control or mA/KV adjustment according to patient size. FINDINGS: Lower chest: No acute abnormality. Liver: No acute abnormality or suspicious lesions. Biliary: No biliary ductal dilatation. Stomach: No significant focal abnormality. Duodenum: No significant focal abnormality. Pancreas: No significant abnormality. Spleen: No significant abnormality. Adrenal: No suspicious lesions. Kidney/ureter: No hydronephrosis. No renal calculi. Retroperitoneum: No retroperitoneal adenopathy. Vascular: No aneurysm. Bowel: No significant focal abnormality. Normal appendix. Peritoneum: No ascites or free air. Bladder: Grossly unremarkable. Reproductive: No adnexal masses. Bones: No acute fracture. Other: n/a IMPRESSION: No acute intra-abdominal or pelvic finding. Normal appendix .
--- NOTE | 2021-07-23 18:12 | ER ---
Nurse's Notes [facility] [place] Name: Byron Gutierrez Age: 35 yrs Sex: Male : 1985 Arrival Date: 07/23/2021 Time: 15:21 Bed 4 Private MD: Diagnosis: Abdominal pain, unspecified;Syncope Near;Diarrhea, unspecified Presentation: 07/23 13:55 Chief complaint: EMS states: Toned out for abdominal pain and fall. Coronavirus screen: 3 At this time, the client does not indicate any symptoms associated with coronavirus-19. 13:55 Care prior to arrival: None. Activity prior to arrival: Pt states he was running to the 3 bathroom and all of a sudden fell. Mechanism of Injury: Fall from standing position. Transition of care: patient was not received from another setting of care. 15:26 Acuity: KYLEIGH 3 1 15:39 Ebola Screen: Patient denies travel to an Ebola-affected area in the 21 days before 1 illness onset. Initial Sepsis Screen: Does the patient meet any 2 criteria? No. Patient's initial sepsis screen is negative. Does the patient have a suspected source of infection? No. Patient's initial sepsis screen is negative. Risk Assessment: Do you want to hurt yourself or someone else? Patient reports no desire to harm self or others. Onset of symptoms was July 23, 2021. 15:39 Method Of Arrival: EMS 1 Triage Assessment: 13:55 General: Appears in no apparent distress. uncomfortable, Behavior is calm, cooperative. ll3 Pain: Complains of pain in abdomen Pain radiates to back Pain currently is 7 out of 10 on a pain scale. Pain began 2 hours ago. Is continuous, Noted to be guarding. Neuro: Level of Consciousness is awake, alert, obeys commands, Oriented to person, place, time, situation, Speech is normal, Facial symmetry appears normal, Reports a syncopal episode. Cardiovascular: Patient's skin is warm and dry. Respiratory: Airway is patent Respiratory effort is even, unlabored, Respiratory pattern is regular, symmetrical. GI: Abdomen is round non-distended, Abd is soft Abdomen is tender to palpation in right upper quadrant and left upper quadrant Guarding noted X 4 quads. Patient currently denies normal bowel habits. Derm: Skin is pink, warm \T\ dry. Historical: - Allergies: 15:53 No Known Allergies; ll3 - PMHx: 15:25 Anxiety; Dissociative Identity Disorder; Seizures; ll1 - Immunization history:: Adult Immunizations up to date. - Social history:: Smoking status: Patient denies any tobacco usage or history of. Patient uses street drugs, marijuana, Patient/guardian denies using street drugs, but used to use street drugs, Pt states he stopped smoking meth 1 year ago. Screenin:49 Abuse screen: Denies threats or abuse. Nutritional screening: No deficits noted. ll1 Tuberculosis screening: No symptoms or risk factors identified. 16:24 Fall Risk Fall in past 12 months (25 points). IV access (20 points). Mental Status- ll3 Oriented to own ability (0 pts). Total Fields Fall Scale indicates High Risk Score (45 or more points). Fall prevention measures have been instituted. Side Rails Up X 2 Frequent Obs/Assessments Occuring. Assessment: 13:55 General: See triage. ll3 15:00 Reassessment: Patient appears in no apparent distress at this time. No changes from ll3 previously documented assessment. Patient and/or family updated on plan of care and expected duration. Pain level reassessed. Patient is alert, oriented x 3, equal unlabored respirations, skin warm/dry/pink. 16:00 Reassessment: Patient appears in no apparent distress at this time. No changes from ll3 previously documented assessment. Patient and/or family updated on plan of care and expected duration. Pain level reassessed. Patient is alert, oriented x 3, equal unlabored respirations, skin warm/dry/pink. 17:00 Reassessment: Patient appears in no apparent distress at this time. No changes from ll3 previously documented assessment. Patient and/or family updated on plan of care and expected duration. Pain level reassessed. Patient is alert, oriented x 3, equal unlabored respirations, skin warm/dry/pink. 18:12 Reassessment: Patient appears in no apparent distress at this time. No changes from ll3 previously documented assessment. Patient and/or family updated on plan of care and expected duration. Pain level reassessed. Patient is alert, oriented x 3, equal unlabored respirations, skin warm/dry/pink. Vital Signs: 13:55 BP 170 / 113; Pulse 106; Resp 15; Temp 98.6(O); Pulse Ox 98% on R/A; Weight 149.69 kg ll3 (R); Height 6 ft. 2 in. (187.96 cm) (R); Pain 7/10; 15:15 BP 139 / 119; Pulse 90; Resp 16; Pulse Ox 96% on R/A; ll3 16:30 BP 99 / 85; Pulse 79; Resp 16; Pulse Ox 96% on R/A; ll3 17:42 BP 144 / 85; Pulse 73; Resp 14; Pulse Ox 98% on R/A; Pain 5/10; ll3 13:55 Body Mass Index 42.37 (149.69 kg, 187.96 cm) ll3 Glenn Coma Score: 13:55 Eye Response: spontaneous(4). Verbal Response: oriented(5). Motor Response: obeys ll3 commands(6). Total: 15. ED Course: 13:55 EKG completed in triage. Results shown to MD. ll3 15:21 Patient arrived in ED. bp 15:22 Rafael Ramirez PA is PHCP. iw 15:24 Oh Harrell MD is Attending Physician. wolf 15:25 Arm band placed on Patient placed in an exam room, on a stretcher. ll1 15:26 Triage completed. ll1 15:41 Modesto Mehta, RN is Primary Nurse. ll3 15:49 Patient has correct armband on for positive identification. Bed in low position. Call ll1 light in reach. Side rails up X2. Pulse ox on. NIBP on. 15:49 Inserted saline lock: 22 gauge in right antecubital area, using aseptic technique. ll1 Blood collected. 16:18 XRAY Chest (1 view) In Process Unspecified. EDMS 16:24 Placed in gown. Seizure precautions initiated. ll3 16:24 EKG done, by ED staff, reviewed by Oh Harrell MD. Initial lab(s) drawn, by ED ll3 staff, sent to lab. Inserted. 16:41 CT Head Brain wo Cont In Process Unspecified. EDMS 16:44 CT Abd/Pelvis - IV Contrast Only In Process Unspecified. EDMS 18:11 Roberto Carlos Palma MD is Referral Physician. jmm 18:12 No provider procedures requiring assistance completed. ll3 18:31 IV discontinued, intact, bleeding controlled, No redness/swelling at site. Pressure ll3 dressing applied. Administered Medications: 16:00 Drug: morphine 4 mg {Note: rass 0.} Route: IVP; Site: right antecubital; ll1 16:30 Follow up: Response: No adverse reaction ll3 16:00 Drug: Zofran (Ondansetron) 4 mg Route: IVP; Site: right antecubital; ll1 16:30 Follow up: Response: No adverse reaction ll3 Outcome: 18:11 Discharge ordered by . lissette 18:32 Discharged to home ambulatory. ll3 18:32 Condition: stable 18:32 Discharge instructions given to patient, Instructed on discharge instructions, follow up and referral plans. medication usage, Demonstrated understanding of instructions, follow-up care, medications, Prescriptions given X 3. 18:33 Patient left the ED. ll3 Signatures: Dispatcher [employer] EDMS Oh Harrell MD MD cha Mickail, Joel, PA PA jmm Williams, Irene, RN RN iw Peltier, Brian, RN RN bp Lewis, Lynsay, RN RN ll1 Modesto Mehta RN RN ll3 Corrections: (The following items were deleted from the chart) 16:28 13:55 BP 113 / 80; Pulse 60bpm; Resp 15bpm; Pulse Ox 100% RA; Temp 98.6F Oral; 149.69 ll3 kg Reported; Height 6 ft. 2 in. Reported; BMI: 42.3; Pain 7/10; ll3
--- NOTE | 2021-07-23 18:12 | EDPHYS ---
Physician Documentation [facility] Name: Byron Gutierrez Age: 35 yrs Sex: Male : 1985 Arrival Date: 07/23/2021 Time: 15: Bed 4 Private MD: ED Physician Oh Harrell HPI: 07/23 15:24 This 35 yrs old Male presents to ER via EMS with complaints of Probable jmm Seizure. 15:24 The patient has experienced near-syncope. Onset: The symptoms/episode began/occurred jmm acutely, just prior to arrival. Duration: This was a single episode. Associated injury: The patient did not suffer any apparent associated injury. Associated signs and symptoms: Pertinent positives: abdominal pain, Pertinent negatives: vomiting. 35-year-old male with history of anxiety, seizures the presents emerged from with complaints of epigastric and left-sided abdominal pain beginning earlier today. Patient states he has had chronic issues with her gallbladder. Patient states that he went to the restroom and had watery bowel movement and also states that he strained because he felt he was constipated. Patient states when he got up he immediately collapsed. He is unsure whether he had a seizure or fully passed out.. Historical: - Allergies: 15:53 No Known Allergies; ll3 - PMHx: 15:25 Anxiety; Dissociative Identity Disorder; Seizures; ll1 - Immunization history:: Adult Immunizations up to date. - Social history:: Smoking status: Patient denies any tobacco usage or history of. Patient uses street drugs, marijuana, Patient/guardian denies using street drugs, but used to use street drugs, Pt states he stopped smoking meth 1 year ago. ROS: 15:24 Constitutional: Negative for fever, chills, and weight loss, Cardiovascular: Negative jmm for chest pain, palpitations, and edema, Respiratory: Negative for shortness of breath, cough, wheezing, and pleuritic chest pain. 15:24 Abdomen/GI: Positive for abdominal pain. 15:24 MS/extremity: Positive for 15:24 All other systems are negative. Exam: 15:24 Constitutional: This is a well developed, well nourished patient who is awake, alert, jmm and in no acute distress. Head/Face: atraumatic. Eyes: EOMI, no conjunctival erythema appreciated ENT: Moist Mucus Membranes Neck: Trachea midline, Supple Chest/axilla: Normal chest wall appearance and motion. Cardiovascular: Regular rate and rhythm. No edema appreciated Respiratory: Normal respirations, no respiratory distress appreciated 15:24 Back: Normal ROM Skin: General appearance color normal MS/ Extremity: Moves all extremities, no obvious deformities appreciated, no edema noted to the lower extremities Neuro: Awake and alert, normal gait Psych: Behavior is normal, Mood is normal, Patient is cooperative and pleasant 15:24 Abdomen/GI: Inspection: abdomen appears normal, Bowel sounds: normal, Palpation: soft, moderate abdominal tenderness, in all quadrants. Vital Signs: 13:55 BP 170 / 113; Pulse 106; Resp 15; Temp 98.6(O); Pulse Ox 98% on R/A; Weight 149.69 kg ll3 (R); Height 6 ft. 2 in. (187.96 cm) (R); Pain 7/10; 15:15 BP 139 / 119; Pulse 90; Resp 16; Pulse Ox 96% on R/A; ll3 16:30 BP 99 / 85; Pulse 79; Resp 16; Pulse Ox 96% on R/A; ll3 17:42 BP 144 / 85; Pulse 73; Resp 14; Pulse Ox 98% on R/A; Pain 5/10; ll3 13:55 Body Mass Index 42.37 (149.69 kg, 187.96 cm) ll3 [place] Coma Score: 13:55 Eye Response: spontaneous(4). Verbal Response: oriented(5). Motor Response: obeys ll3 commands(6). Total: 15. MDM: 15:24 Patient medically screened. [facility] 18:09 Data reviewed: vital signs, nurses notes. Counseling: I had a detailed discussion with lissette the patient and/or guardian regarding: the historical points, exam findings, and any diagnostic results supporting the discharge/admit diagnosis, lab results, radiology results, the need for outpatient follow up, to return to the emergency department if symptoms worsen or persist or if there are any questions or concerns that arise at home. ED course: Patient is alert and non toxic in appearance in the ED. Imaging studies negative. Patient advised to follow up with pcp and otherwise given strict return precautions. Patient understood and agrees with the plan of care. . 07/23 15:37 Order name: Basic Metabolic Panel; Complete Time: 16:18 [facility] 07/23 15:37 Order name: CBC with Diff; Complete Time: 15:55 [facility] 07/23 15:37 Order name: LFT's; Complete Time: 16:18 [facility] 07/23 15:37 Order name: Magnesium; Complete Time: 16:18 [facility] 07/23 15:37 Order name: NT PRO-BNP; Complete Time: 16:18 [facility] 07/23 15:37 Order name: PT-INR; Complete Time: 15:56 [facility] 07/23 15:37 Order name: Troponin (emerg Dept Use Only); Complete Time: 16:18 [facility] 07/23 15:37 Order name: XRAY Chest (1 view); Complete Time: 16:47 [facility] 07/23 15:37 Order name: Lipase; Complete Time: 16:18 [facility] 07/23 15:38 Order name: CT Head Brain wo Cont; Complete Time: 17:03 [facility] 07/23 15:38 Order name: CT Abd/Pelvis - IV Contrast Only; Complete Time: 17:03 [facility] 07/23 16:22 Order name: Urine Dipstick-Ancillary [facility] 07/23 15:37 Order name: EKG; Complete Time: 15:38 [facility] 07/23 15:37 Order name: Cardiac monitoring; Complete Time: 15:41 [facility] 07/23 15:37 Order name: EKG - Nurse/Tech; Complete Time: 16:14 [facility] 07/23 15:37 Order name: IV Saline Lock; Complete Time: 15:40 [facility] 07/23 15:37 Order name: Labs collected and sent; Complete Time: 15:40 [facility] 07/23 15:37 Order name: O2 Per Protocol; Complete Time: 15:40 [facility] 07/23 15:37 Order name: O2 Sat Monitoring; Complete Time: 15:40 [facility] Administered Medications: 16:00 Drug: morphine 4 mg {Note: rass 0.} Route: IVP; Site: right antecubital; ll1 16:30 Follow up: Response: No adverse reaction ll3 16:00 Drug: Zofran (Ondansetron) 4 mg Route: IVP; Site: right antecubital; ll1 16:30 Follow up: Response: No adverse reaction ll3 Disposition: 18:56 Co-signature as Attending Physician, Oh Harrell MD I agree with the assessment and wolf plan of care. Disposition Summary: 07/23/21 18:11 Discharge Ordered Location: Home [facility] Condition: Stable jmm Diagnosis - Abdominal pain, unspecified jmm - Syncope Near jmm - Diarrhea, unspecified jmm Followup: jm - With: Roberto Carlos Palma MD - When: 2 - 3 days - Reason: Recheck today's complaints, Continuance of care, Re-evaluation by your physician Discharge Instructions: - Discharge Summary Sheet jmm - Abdominal Pain, Adult jmm - Food Choices to Help Relieve Diarrhea, Adult jmm - Near-Syncope jmm - Clear Liquid Diet, Adult jmm Forms: - Medication Reconciliation Form [facility] - Thank You Letter [facility] - Antibiotic Education [facility] - Prescription Opioid Use [facility] Prescriptions: - ondansetron 4 mg Oral tablet,disintegrating - place 1 tablet by TRANSLINGUAL route every 12 hours; 20 tablet; Refills: 0, [facility] Product Selection Permitted - Pepcid 20 mg Oral Tablet - take 1 tablet by ORAL route every 12 hours for 10 days; 20 tablet; Refills: 0, [facility] Product Selection Permitted - dicyclomine 20 mg Oral Tablet - take 1 tablet by ORAL route 3 times per day; 30 tablet; Refills: 0, Product [facility] Selection Permitted Signatures: Dispatcher [employer] Oh Dubois MD MD cha Mickail, Joel, PA PA jmm Lewis, Lynsay, RN RN ll1 [place] Mehta RN RN ll3
[2021-07-23 19:34] VITALS: BP 144/85; O2SAT 98
== END 2021-07-23 18:33 | disposition home or self-care (01) ==
LOC: ER 15:19
DX: R10.9 Unspecified abdominal pain (principal); R19.7 Diarrhea, unspecified
CPT/HCPCS: 85025; 80048; 36415; 83735; 85610; 80076; 81003; 84484; 83690; 83880; 70450; 74177; 71045; Q9967; J2405; 93005